=== PATIENT | male | born 1965 | race Caucasian/White ===

== ENCOUNTER → 2023-05-28 10:28 | Outpatient (REF) | payer OTHER, SELFPAY ==
[2023-05-28 11:30] LABS: INR 5.84; PT 52.8 Sec (11.4-14.6)
== END ==
LOC: REG 10:28
PROVIDERS: ATTENDING PHYSICIAN Internal Medicine Cardiovascular Disease
DX: Z95.2 Presence of prosthetic heart valve (principal); Z79.01 Long term (current) use of anticoagulants
CPT/HCPCS: 36415; 85610

== ENCOUNTER → 2023-05-31 10:15 | Outpatient (REF) | payer OTHER, SELFPAY ==
[2023-05-31 11:53] LABS: INR 1.72; PT 20.3 Sec (11.4-14.6)
== END ==
LOC: REG 10:15
PROVIDERS: ATTENDING PHYSICIAN Internal Medicine Cardiovascular Disease
DX: Z79.01 Long term (current) use of anticoagulants (principal); Z95.2 Presence of prosthetic heart valve
CPT/HCPCS: 36415; 85610

== ENCOUNTER → 2023-06-15 16:49 | Outpatient (REF) | payer OTHER, SELFPAY ==
[2023-06-15 17:44] LABS: INR 2.62; PT 27.9 Sec (11.4-14.6)
== END ==
LOC: REG 16:49
PROVIDERS: ATTENDING PHYSICIAN Internal Medicine Cardiovascular Disease; FAMILY PHYSICIAN Internal Medicine
DX: Z79.01 Long term (current) use of anticoagulants (principal); I48.0 Paroxysmal atrial fibrillation
CPT/HCPCS: 36415; 85610

== ENCOUNTER → 2023-06-25 09:28 | Outpatient (REF) | payer OTHER, SELFPAY ==
[2023-06-25 10:44] LABS: INR 2.29; PT 25.1 Sec (11.4-14.6)
== END ==
LOC: REG 09:28
PROVIDERS: ATTENDING PHYSICIAN Internal Medicine Cardiovascular Disease; FAMILY PHYSICIAN Internal Medicine
DX: Z95.2 Presence of prosthetic heart valve (principal); Z79.01 Long term (current) use of anticoagulants
CPT/HCPCS: 36415; 85610

== ENCOUNTER → 2023-07-17 12:02 | Outpatient (REF) | payer OTHER, SELFPAY ==
[2023-07-17 13:02] LABS: INR 3.59; PT 35.8 Sec (11.4-14.6)
== END ==
LOC: REG 12:02
PROVIDERS: ATTENDING PHYSICIAN Internal Medicine Cardiovascular Disease
DX: Z95.2 Presence of prosthetic heart valve (principal); Z79.01 Long term (current) use of anticoagulants
CPT/HCPCS: 36415; 85610

== ENCOUNTER → 2023-08-10 10:00 | Outpatient (REF) | payer OTHER, SELFPAY ==
[2023-08-10 11:12] LABS: INR 3.57; PT 35.7 Sec (11.4-14.6)
== END ==
LOC: REG 10:00
PROVIDERS: ATTENDING PHYSICIAN Internal Medicine Cardiovascular Disease
DX: Z95.2 Presence of prosthetic heart valve (principal); Z79.01 Long term (current) use of anticoagulants
CPT/HCPCS: 36415; 85610

== ENCOUNTER → 2023-09-25 10:36 | Outpatient (REF) | payer OTHER, SELFPAY ==
[2023-09-25 11:46] LABS: INR 2.38; PT 25.8 Sec (11.4-14.6)
== END ==
LOC: REG 10:36
PROVIDERS: ATTENDING PHYSICIAN Internal Medicine Cardiovascular Disease
DX: Z95.2 Presence of prosthetic heart valve (principal); Z79.01 Long term (current) use of anticoagulants
CPT/HCPCS: 36415; 85610

== ENCOUNTER → 2023-10-09 07:40 | Outpatient (REF) | payer OTHER, SELFPAY ==
[2023-10-09 08:38] LABS: INR 1.83
== END ==
LOC: REG 07:40
PROVIDERS: ATTENDING PHYSICIAN Internal Medicine Cardiovascular Disease
DX: Z95.2 Presence of prosthetic heart valve (principal); Z79.01 Long term (current) use of anticoagulants
CPT/HCPCS: 36415; 85610

== ENCOUNTER → 2023-10-22 10:39 | Outpatient (REF) | payer OTHER, SELFPAY ==
[2023-10-22 11:26] LABS: INR 3.69; PT 36.6 Sec (11.4-14.6)
== END ==
LOC: REG 10:39
PROVIDERS: ATTENDING PHYSICIAN Internal Medicine Cardiovascular Disease
DX: Z95.2 Presence of prosthetic heart valve (principal); Z79.01 Long term (current) use of anticoagulants
CPT/HCPCS: 36415; 85610

== ENCOUNTER → 2023-11-12 11:14 | Outpatient (REF) | payer OTHER, SELFPAY ==
[2023-11-12 12:22] LABS: INR 1.78; PT 20.5 Sec (11.4-14.6)
== END ==
LOC: REG 11:14
PROVIDERS: ATTENDING PHYSICIAN Internal Medicine Cardiovascular Disease
DX: Z95.2 Presence of prosthetic heart valve (principal); Z79.01 Long term (current) use of anticoagulants
CPT/HCPCS: 36415; 85610

== ENCOUNTER → 2023-11-23 15:10 | Outpatient (REF) | payer OTHER, SELFPAY ==
[2023-11-23 16:11] LABS: INR 3.13; PT 32.1 Sec (11.4-14.6)
== END ==
LOC: REG 15:10
PROVIDERS: ATTENDING PHYSICIAN Internal Medicine Cardiovascular Disease
DX: Z95.2 Presence of prosthetic heart valve (principal); Z79.01 Long term (current) use of anticoagulants
CPT/HCPCS: 36415; 85610

== ENCOUNTER → 2023-12-31 13:28 | Outpatient (REF) | payer OTHER, SELFPAY ==
[2023-12-31 14:21] LABS: INR 2.87
== END ==
LOC: REG 13:28
PROVIDERS: ATTENDING PHYSICIAN Internal Medicine Cardiovascular Disease
DX: Z95.2 Presence of prosthetic heart valve (principal); Z79.01 Long term (current) use of anticoagulants
CPT/HCPCS: 36415; 85610

== ENCOUNTER → 2024-01-28 14:45 | Outpatient (REF) | payer OTHER, SELFPAY ==
[2024-01-28 16:48] LABS: INR 2.75
== END ==
LOC: REG 14:45
PROVIDERS: ATTENDING PHYSICIAN Internal Medicine Cardiovascular Disease
DX: Z95.2 Presence of prosthetic heart valve (principal); Z79.01 Long term (current) use of anticoagulants
CPT/HCPCS: 36415; 85610

== ENCOUNTER → 2024-03-07 14:23 | Outpatient (REF) | payer OTHER, SELFPAY ==
[2024-03-07 15:27] LABS: INR 3.49; PT 34.8 Sec (11.4-14.6)
== END ==
LOC: REG 14:23
PROVIDERS: ATTENDING PHYSICIAN Internal Medicine Cardiovascular Disease
DX: Z95.2 Presence of prosthetic heart valve (principal); Z79.01 Long term (current) use of anticoagulants
CPT/HCPCS: 36415; 85610

== ENCOUNTER → 2024-04-11 09:33 | Outpatient (REF) | payer OTHER, SELFPAY ==
[2024-04-11 10:26] LABS: INR 2.18; PT 24.4 Sec (11.4-14.6)
== END ==
LOC: REG 09:33
PROVIDERS: ATTENDING PHYSICIAN Internal Medicine Cardiovascular Disease
DX: Z95.2 Presence of prosthetic heart valve (principal); Z79.01 Long term (current) use of anticoagulants
CPT/HCPCS: 36415; 85610

== ENCOUNTER → 2024-05-05 14:30 | Outpatient (REF) | payer OTHER, SELFPAY ==
[2024-05-05 16:26] LABS: INR 1.91
== END ==
LOC: REG 14:30
PROVIDERS: ATTENDING PHYSICIAN Internal Medicine Cardiovascular Disease
DX: Z95.2 Presence of prosthetic heart valve (principal); Z79.01 Long term (current) use of anticoagulants
CPT/HCPCS: 36415; 85610

== ENCOUNTER → 2024-05-20 13:02 | Outpatient (REF) | payer OTHER, SELFPAY ==
[2024-05-20 14:27] LABS: INR 2.22; PT 24.7 Sec (11.4-14.6)
== END ==
LOC: REG 13:02
PROVIDERS: ATTENDING PHYSICIAN Internal Medicine Cardiovascular Disease
DX: Z95.2 Presence of prosthetic heart valve (principal); Z79.01 Long term (current) use of anticoagulants
CPT/HCPCS: 36415; 85610

== ENCOUNTER → 2024-06-06 10:52 | Outpatient (REF) | payer OTHER, SELFPAY ==
[2024-06-06 11:48] LABS: INR 3.69; PT 36.3 Sec (11.4-14.6)
== END ==
LOC: REG 10:52
PROVIDERS: ATTENDING PHYSICIAN Internal Medicine Cardiovascular Disease
DX: Z95.2 Presence of prosthetic heart valve (principal); Z79.01 Long term (current) use of anticoagulants
CPT/HCPCS: 36415; 85610

== ENCOUNTER → 2024-07-15 12:15 | Outpatient (REF) | payer OTHER, SELFPAY ==
[2024-07-15 13:14] LABS: INR 2.55; PT 27.5 Sec (11.4-14.6)
== END ==
LOC: REG 12:15
PROVIDERS: ATTENDING PHYSICIAN Internal Medicine Cardiovascular Disease
DX: Z79.01 Long term (current) use of anticoagulants (principal)
CPT/HCPCS: 36415; 85610

== ENCOUNTER → 2024-08-15 12:37 | Outpatient (REF) | payer OTHER, SELFPAY ==
[2024-08-15 13:54] LABS: INR 2.81; PT 29.5 Sec (11.4-14.6)
== END ==
LOC: REG 12:37
PROVIDERS: ATTENDING PHYSICIAN Internal Medicine Cardiovascular Disease
DX: Z79.01 Long term (current) use of anticoagulants (principal)
CPT/HCPCS: 36415; 85610

== ENCOUNTER → 2024-09-29 12:22 | Outpatient (REF) | payer OTHER, SELFPAY ==
[2024-09-29 13:24] LABS: INR 1.95; PT 22.4 Sec (11.4-14.6)
== END ==
LOC: REG 12:22
PROVIDERS: ATTENDING PHYSICIAN Internal Medicine Cardiovascular Disease
DX: Z79.01 Long term (current) use of anticoagulants (principal)
CPT/HCPCS: 36415; 85610

== ENCOUNTER → 2024-10-02 08:51 | Outpatient (REF) | payer OTHER, SELFPAY ==
[2024-10-02 10:22] LABS: INR 2.45; PT 27.0 Sec (11.4-14.6)
== END ==
LOC: REG 08:51
PROVIDERS: ATTENDING PHYSICIAN Internal Medicine Cardiovascular Disease
DX: Z79.01 Long term (current) use of anticoagulants (principal)
CPT/HCPCS: 36415; 85610

== ENCOUNTER → 2024-10-23 14:26 | Outpatient (REF) | payer OTHER, SELFPAY ==
[2024-10-23 15:18] LABS: INR 2.34; PT 25.7 Sec (11.4-14.6)
== END ==
LOC: REG 14:26
PROVIDERS: ATTENDING PHYSICIAN Internal Medicine Cardiovascular Disease
DX: Z79.01 Long term (current) use of anticoagulants (principal)
CPT/HCPCS: 36415; 85610

== ENCOUNTER 2024-11-06 08:13 | Outpatient (RCR) | payer OTHER, SELFPAY | END 2024-11-06 23:59 | disposition home or self-care (01) | LOC: RPT 08:13 | PROVIDERS: ATTENDING PHYSICIAN Orthopaedic Surgery | DX: S46.011D Strain of muscle(s) and tendon(s) of the rotator cuff of right shoulder, subsequent encounter (principal); Z73.6 Limitation of activities due to disability; M62.81 Muscle weakness (generalized) | CPT/HCPCS: 97112; 97140; 97162 ==

== ENCOUNTER → 2024-11-06 13:01 | Outpatient (REF) | payer OTHER, SELFPAY ==
[2024-11-06 15:25] LABS: INR 3.04; PT 31.8 Sec (11.4-14.6)
== END ==
LOC: REG 13:01
PROVIDERS: ATTENDING PHYSICIAN Internal Medicine Cardiovascular Disease
DX: Z79.01 Long term (current) use of anticoagulants (principal)
CPT/HCPCS: 36415; 85610

== ENCOUNTER 2024-12-09 13:24 | Emergency (ER) | payer OTHER, SELFPAY ==
[2024-12-09 13:27] VITALS: BP 164/106
[2024-12-09 13:52] LABS: Hematocrit 38.8 % (39.0-52.0); Hemoglobin 12.8 g/dL (13.0-18.0); Mean Corp Hgb Conc. 33.0 g/dL (33.0-37.0); Mean Corpuscular Volume 87.4 fL (80.0-94.0); Nucleated Red Blood Cells % 0 % (-); Platelet Count 257 10^3/uL (130-400); Red Cell Dist. Width 14.6 % (11.5-14.5)
[2024-12-09 14:12] LABS: INR 2.93; PT 30.5 Sec (11.4-14.6)
--- NOTE | 2024-12-09 15:19 | ED.GENMED ---
History of Present Illness
General
Chief Complaint: Musculo-Skeletal Complaint
Source: patient
Time Seen by Provider: 12/09/24 14:51
History of Present Illness
History of Present Illness:
59-year-old male with past medical history of seizure, status post aortic valve replacement on Coumadin presenting to the emergency department for evaluation of right forearm swelling and bruising which started yesterday, was recently diagnosed with
a torn rotator cuff about a month ago by orthopedics, concern for compartment syndrome as he had a history of this on his left lower extremity back in 2018. Patient does state while there is pain to the area he denies any color changes,
poikilothermia, paresthesia. He denies any new trauma to this area. He reports compliance with his Coumadin. No other concerns presently.
Past History
Past History
ED Past Medical History: Asthma, Seizures, Valvular disease and Other (Infectious aortic endocarditis)
ED Past Surgical History: Cardiac (Aortic valve replacement)
Social History
Tobacco: Non-smoker
Alcohol: Occasional
Drug: Former user (Heroin overdose)
Personal:
Living: with family
Employment: Not employed
Review of Systems
Review of Systems
All Other Systems: ROS reviewed and negative except as documented in HPI and ROS
Phy Exam
Physical Exam
Physical Exam:
GENERAL: Alert , in no apparent distress
EYE: conjunctiva clear
Head: Normocephalic atraumatic
NECK: Supple,
ENT: mmm.
LUNGS: no acute respiratory distress
NEUROLOGICAL: Alert and oriented
SKIN: Warm and dry, skin intact.
MUSCULOSKELETAL: Right upper extremity: Moderate area of ecchymosis to the proximal to mid right forearm, compartments soft. Patient allows for full range of motion of the right upper extremity, does have some discomfort with range of motion of the
right shoulder which patient states has been since his rotator cuff tear. Easily palpable radial pulse. CR < 2 sec
PSYCH: Normal and appropriate interaction.
Scores
Heart Failure Risk
Heart Failure Risk Score: Not Applicable
Heart Score for Chest Pain Patients
STEMI patient?: Not applicable
Withdrawal Assessment of Alcohol
Withdrawal Assessment Completed?: Not applicable
Course
Orders/Labs/Results
Orders:
Orders
12/09/24 13:38
Venous Doppler Upr Ext Right [US Periph Venous UPPER Ext RT] Urgent
Comment:
Reason For Exam: swelling, Ecchymosis
12/09/24 13:44
Complete Blood Count/With Diff Urgent
INR [Prothrombin Time] Urgent
Abnormal Lab Results
12/09/24
13:44
RBC 4.44 L 10^6/uL
(4.70-6.10)
Hgb 12.8 L g/dL
(13.0-18.0)
Hct 38.8 L %
(39.0-52.0)
RDW 14.6 H %
(11.5-14.5)
MPV 10.7 H fL
(7.4-10.4)
Absolute Monos (auto) 0.9 H 10^3/uL
(0.1-0.6)
Lymphocytes % 17.4 L %
(20.5-51.1)
Monocytes % 10.7 H %
(1.7-9.3)
Eosinophils % 6.9 H %
(0-6)
PT 30.5 H Sec
(11.4-14.6)
12/09/24 13:44
Vital Signs
Initial and Last Documented VS:
Initial Vital Signs
Temp Pulse Resp BP Pulse Ox
98.7 F 88 18 164/106 99
12/09/24 13:27 12/09/24 13:27 12/09/24 13:27 12/09/24 13:27 12/09/24 13:27
Last Documented Vital Signs
Temp Pulse Resp BP Pulse Ox
98.7 F 73 18 122/88 99
12/09/24 13:27 12/09/24 15:43 12/09/24 13:27 12/09/24 15:43 12/09/24 15:22
MDM/Problems Addressed
Differential Diagnosis Includes:
Hematoma
DVT
SVT
Cellulitis
Patient has pain but no other symptoms to suggest compartment syndrome
No trauma for fracture
MDM/Problems Addressed:
59-year-old male presenting to the ER for evaluation of what appears to be a nontraumatic ecchymosis to the right forearm. Given patient is on Coumadin we will check labs to assess hemoglobin as well as his INR. Ultrasound ordered. Reassessment
following. Patient otherwise hemodynamically stable
*Radiology
Radiology exam reviewed: radiology read reviewed
*Pulse Oximetry
SaO2: 99
Oxygen Mode of Delivery: Room air
Patient hypoxic: no
*Critical Care Note
Total Time (30-74mins, 75-104mins- exclusive of procedures): Not Applicable
Patient Management
Escalation/DeEscalation of care consider admission/obs:
Ultrasound is negative for DVT. There does appear to be a hematoma measuring 10 x 4 cm. Advised ice and elevation of the area, Tylenol for pain. Patient did mention to me that he takes NSAIDs for chronic pain. I did mention to him that this
should not be used with his Coumadin as that he has increased potential for bleeding. Patient states that he is on chronic pain medication and has attempted other treatments in the past but these have not worked for him. I again reiterated that
concomitant use of warfarin and NSAIDs is contraindicated. Patient to follow-up with his orthopedic team.
ED Attending Note
-
Portions of this chart may have been created with voice recognition software.� Occasional wrong word or��sound alike� substitutions may have occurred due to the inherent limitations of voice recognition software.
Discharge Plan
Departure
Patient Disposition: Home (Routine Discharge)
Date of Disposition: 12/09/24
Time of Disposition: 15:20
Patient with high blood pressure during this ER visit?: Yes
Discharge Problem:
Hematoma of right forearm
Instructions: Hematoma
Prescriptions:
No Action
warfarin 7.5 mg Tablet
7.5 mg PO DAILY
Rx Instructions:
INR goal = 2.5 - 3.5
magnesium oxide 500 mg Tablet
500 mg PO DAILY
zinc sulfate 220 mg Capsule
220 mg PO DAILY
fluticasone propionate [Flonase] 50 mcg/actuation [place],Suspension
2 spray INTRANASAL DAILY
duloxetine 30 mg Capsule,Delayed Release(Dr/Ec)
30 mg PO QPM
cholecalciferol (vitamin D3) 25 mcg (1,000 unit) Tablet
1,000 unit PO DAILY
ibuprofen 200 mg Tablet
400 mg PO Q6HPRN PRN (Reason: pain)
hydrocodone-acetaminophen 7.5-325 mg tablet
1 tab PO Q8H PRN (Reason: pain) Qty: 10 0RF
Interventions
Interventions:
*Risk Screen - Suicide Last Done: 12/09/24 15:43
*General Assessment Last Done: 12/09/24 15:40
*Neglect/Abuse Screening Last Done: 12/09/24 15:43
*ED- Fall Risk Assessment Last Done: 12/09/24 15:40
*ED COVID-19 Vaccine History Last Done: 12/09/24 15:40
ED-Musculoskeletal Assessment Last Done: 12/09/24 15:41
*Nursing Disposition Last Done: 12/09/24 15:43
Discharge Date and Time
Discharge Date/Time: 12/09/24 15:52
Print Language: KAZAKH
[2024-12-09 15:40] VITALS: BMI 30.5
[2024-12-09 15:43] VITALS: BP 122/88
== END 2024-12-09 15:52 | disposition home or self-care (01) ==
LOC: EMR 13:24
PROVIDERS: Physician Assistant Medical; EMERGENCY PHYSICIAN Emergency Medicine
DX: S50.11XA Contusion of right forearm, initial encounter (principal); X58.XXXA Exposure to other specified factors, initial encounter; J45.909 Unspecified asthma, uncomplicated; G89.29 Other chronic pain; Z79.01 Long term (current) use of anticoagulants; Z95.2 Presence of prosthetic heart valve
CPT/HCPCS: 99284; 85025; 85610; 93971

== ENCOUNTER → 2025-01-09 06:33 | Outpatient (REF) | payer OTHER, SELFPAY ==
[2025-01-09 09:03] LABS: INR 3.74; PT 36.6 Sec (11.4-14.6)
== END ==
LOC: MRI 06:33
PROVIDERS: ATTENDING PHYSICIAN Orthopaedic Surgery; REFERRING PHYSICIAN Internal Medicine Cardiovascular Disease
DX: S46.011A Strain of muscle(s) and tendon(s) of the rotator cuff of right shoulder, initial encounter (principal); Z79.01 Long term (current) use of anticoagulants
CPT/HCPCS: 36415; 73221; 85610

== ENCOUNTER 2025-01-28 12:55 | Emergency (ER) | payer OTHER, SELFPAY ==
[2025-01-28 13:00] VITALS: BP 139/80
[2025-01-28 13:31] LABS: INR 2.71; PT 29.1 Sec (11.4-14.6)
--- NOTE | 2025-01-28 14:14 | ED.GENMED ---
History of Present Illness
<SHANIQUA Aj - Last Filed: 01/28/25 15:47>
General
Chief Complaint: Musculo-Skeletal Complaint
Source: patient
Exam Limitations: none
Time Seen by Provider: 01/28/25 14:09
Nursing documentation reviewed up to this point in time: agreed with
History of Present Illness
History of Present Illness:
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
hook of a railing around his proximal forearm area. Because of this he stopped Coumadin 2 days ago knowing this can make it worse. Since then he complains of pain and swelling to the proximal forearm. He does complain of numbness and tingling to
the tips of his fingers he is right-hand dominant. He does note that he has an old rotator cuff injury to this right arm.
Past History
<SHANIQUA Aj - Last Filed: 01/28/25 15:47>
Past History
ED Past Medical History: Asthma, Seizures, Valvular disease and Other (Infectious aortic endocarditis)
ED Past Surgical History: Cardiac (Aortic valve replacement)
Social History
Tobacco: Non-smoker
Alcohol: Occasional
Drug: Former user (Heroin overdose)
Personal:
Living: with family
Employment: Not employed
Phy Exam
<SHANIQUA Aj - Last Filed: 01/28/25 15:47>
General Physical Exam
General Presentation: no apparent distress
General age: appears stated age
General Skin: warm and dry
General Habitus: normal
General Mental: alert
General Hydration: appears well hydrated
Neurological Exam
Neurological Exam: alert and oriented x3
Musculoskeletal Exam
Musculoskeletal Exam: other (RUE with strong pulses;+ swelling tenderness to proximal forearm , nml distal sensation, able to flex/extend all fingers. )
Skin Exam
Skin Exam: normal color and warm/dry
Psychiatric Exam
Psychiatric Exam: normal mood/affect
Course
<SHANIQUA Aj - Last Filed: 01/28/25 15:47>
Orders/Labs/Results
Orders:
Orders
01/28/25 13:03
Forearm, Right 2 View [CR Forearm - Right 2 View] Urgent
Comment:
Reason For Exam: pain
01/28/25 13:04
Periph Venous Upr Ext Right US [US Periph Venous UPPER Ext RT] Urgent
Comment:
Reason For Exam: pain, swelling
01/28/25 13:10
INR [Prothrombin Time] Urgent
Abnormal Lab Results
01/28/25
13:10
PT 29.1 H Sec
(11.4-14.6)
Vital Signs
Initial and Last Documented VS:
Initial Vital Signs
Temp Pulse Resp BP Pulse Ox
36.8 C 63 18 139/80 97
01/28/25 13:00 01/28/25 13:00 01/28/25 13:00 01/28/25 13:00 01/28/25 13:00
Last Documented Vital Signs
Temp Pulse Resp BP Pulse Ox
36.8 C 63 18 139/80 97
01/28/25 13:00 01/28/25 13:00 01/28/25 13:00 01/28/25 13:00 01/28/25 14:16
Director Of Dance consulted with Physician
Director Of Dance consulted with physician?: Yes
Name of Physician Consulted: Keith
<Morgan Parker MD - Last Filed: 01/28/25 15:53>
Orders/Labs/Results
Orders:
Orders
01/28/25 13:03
Forearm, Right 2 View [CR Forearm - Right 2 View] Urgent
Comment:
Reason For Exam: pain
01/28/25 13:04
Periph Venous Upr Ext Right US [US Periph Venous UPPER Ext RT] Urgent
Comment:
Reason For Exam: pain, swelling
01/28/25 13:10
INR [Prothrombin Time] Urgent
Abnormal Lab Results
01/28/25
13:10
PT 29.1 H Sec
(11.4-14.6)
Vital Signs
Initial and Last Documented VS:
Initial Vital Signs
Temp Pulse Resp BP Pulse Ox
36.8 C 63 18 139/80 97
01/28/25 13:00 01/28/25 13:00 01/28/25 13:00 01/28/25 13:00 01/28/25 13:00
Last Documented Vital Signs
Temp Pulse Resp BP Pulse Ox
36.8 C 63 18 139/80 97
01/28/25 13:00 01/28/25 13:00 01/28/25 13:00 01/28/25 13:00 01/28/25 14:16
<SHANIQUA Aj - Last Filed: 01/28/25 15:47>
MDM/Problems Addressed
Differential Diagnosis Includes:
Not limited to contusion, hematoma, fracture, compartment syndrome.
MDM/Problems Addressed:
As documented patient is a 5-year-old male on Coumadin presents for evaluation of forearm injury. Patient hit his forearm on a railing 2 days ago and has had pain since. He stopped his Coumadin because of this 2 days ago. He does complain of pain
to the proximal forearm with slight numbness and tingling to the fingers. However on exam his compartments soft he does have tenderness and swelling palpable hematoma to the proximal dorsal forearm. He does have intact sensation strong distal
pulses normal cap refill. His INR is 2.71 At this time symptoms are consistent with contusion however with being on Coumadin we did discuss possibility of observation overnight . He would like to go home. Strict return precautions given I did
review compartment syndrome. Will place an niko for support to wear during the day he may remove at night while sleeping. Will d/c w/ pain meds. He may hold Coumadin today and call his fretted instrument inspector tomorrow for further instructions.
Chronic conditions affecting care:
On Coumadin for valve
<SHANIQUA Aj - Last Filed: 01/28/25 15:47>
*Radiology
Radiology exam reviewed: radiology read reviewed
*Pulse Oximetry
SaO2: 97
Oxygen Mode of Delivery: Room air
Patient hypoxic: no
*Critical Care Note
Total Time (30-74mins, 75-104mins- exclusive of procedures): Not Applicable
ED Attending Note
<SHANIQUA Aj - Last Filed: 01/28/25 15:47>
-
Portions of this chart may have been created with voice recognition software.� Occasional wrong word or��sound alike� substitutions may have occurred due to the inherent limitations of voice recognition software.
<Morgan Parker MD - Last Filed: 01/28/25 15:53>
ED Attending Note
Patient seen and examined by attending physician: Yes
ED Attending Note:
I have seen and evaluated the patient with a [id number] encounter. I have spoken to the advance practicer provider and involved in the medical history, the physical exam, medical decision making.
Evaluation and management service: agree unless noted differently below.
Results interpretation: agree unless noted differently below.
Focused HPI: 59-year-old male with history as noted significant for aortic valve replacement on Coumadin who presents to the ER for evaluation of right forearm pain and swelling. Patient's struck his arm 2 days ago on a railing and has had pain in
the right forearm since. He reports swelling. He has some tingling in his fingertips as well. He says that in the past he has developed compartment syndrome and so he came to the ER to be evaluated. He has been holding his Coumadin for the past
2 days.
Physical exam: Awake and alert. Vital signs normal. On exam of his right arm he has palpable hematoma on the dorsum of the proximal right forearm which is tender to touch but the rest of his arm nontender. Compartments are soft. Motor and
sensory objectively radial, median, ulnar nerve distribution he has a bounding right radial pulse.
Medical Decision Makin-year-old male presents for evaluation of right forearm pain. He is on Coumadin. X-ray shows no fracture. Ultrasound shows no DVT but findings consistent with a hematoma. INR today is 2.7, has been holding Coumadin x
48 hours. Overall his exam is not consistent with a compartment syndrome. Able to control his pain here. We did have a long discussion with the patient about risk of progression to compartment syndrome. Spoke to him about being observed in the
hospital for serial checks but he declined he says that he will not stay in the hospital. Will instead place compression wrap on the forearm. Advised him to hold Coumadin this evening and call his fretted instrument inspector in the morning to discuss further.
Spoke in detail about strict return precautions�he says he has had compartment syndrome before and is quite familiar with reasons to return. All questions answered.
Discharge Plan
Departure
Patient Disposition: Home (Routine Discharge)
Date of Disposition: 01/28/25
Time of Disposition: 15:39
Patient with high blood pressure during this ER visit?: Yes
Condition: Fair
Covid-19: Not Applicable
Discharge Problem:
Contusion of forearm, right, Hematoma
Instructions: Contusion (DC), BLOOD PRESSURE, Hematoma
Prescriptions:
New
oxycodone 5 mg tablet
5 mg PO Q6H PRN (Reason: Pain) Qty: 10 0RF
No Action
warfarin 7.5 mg Tablet
7.5 mg PO DAILY
Rx Instructions:
INR goal = 2.5 - 3.5
magnesium oxide 500 mg Tablet
500 mg PO DAILY
zinc sulfate 220 mg Capsule
220 mg PO DAILY
fluticasone propionate [Flonase] 50 mcg/actuation [place],Suspension
2 spray INTRANASAL DAILY
duloxetine 30 mg Capsule,Delayed Release(Dr/Ec)
30 mg PO QPM
cholecalciferol (vitamin D3) 25 mcg (1,000 unit) Tablet
1,000 unit PO DAILY
ibuprofen 200 mg Tablet
400 mg PO Q6HPRN PRN (Reason: pain)
hydrocodone-acetaminophen 7.5-325 mg tablet
1 tab PO Q8H PRN (Reason: pain) Qty: 10 0RF
Referrals:
Rose Obrien MD [Family Provider, Internal Medicine]
Activity Restrictions/Additional Instructions:
As discussed wear Niko wrap for support for gentle compression however remove at night while sleeping. You may take Tylenol for pain if needed a stronger medicine was sent to your pharmacy. This is a narcotic. No driving or drinking alcohol taking
this medication. This medication may also cause constipation please take additional laxative while taking this medication. Do not take your Coumadin this evening however please call your fretted instrument inspector tomorrow for further instructions on restarting
your medication.
Return however to the ER if any worsening of symptoms of increased pain, swelling, increasing numbness , cold numb or blue fingers
Interventions
Interventions:
*Risk Screen - Suicide Last Done: 01/28/25 13:00
*General Assessment Last Done: 01/28/25 13:00
*Neglect/Abuse Screening Last Done: 01/28/25 13:16
*ED- Fall Risk Assessment Last Done: 01/28/25 13:16
*ED COVID-19 Vaccine History Last Done: 01/28/25 13:16
*ED Influenza Vaccine History Last Done: 01/28/25 13:16
ED-Musculoskeletal Assessment Last Done: 01/28/25 13:16
Discharge Date and Time
Print Language: MALTESE
== END 2025-01-28 16:00 | disposition home or self-care (01) ==
LOC: EMR 12:55
PROVIDERS: Emergency Medicine; EMERGENCY PHYSICIAN Emergency Medicine; FAMILY PHYSICIAN Student in an Organized Health Care Education/Training Program
DX: S50.11XA Contusion of right forearm, initial encounter (principal); W22.09XA Striking against other stationary object, initial encounter; R22.31 Localized swelling, mass and lump, right upper limb; J45.909 Unspecified asthma, uncomplicated; Z95.2 Presence of prosthetic heart valve; Z79.01 Long term (current) use of anticoagulants
CPT/HCPCS: 99284; 73090; 85610; 93971

== ENCOUNTER 2025-01-29 16:14 | Inpatient (IN) | payer OTHER, SELFPAY ==
[2025-01-29] VITALS (23 sets, daily range): BP systolic 100–177; BP diastolic 56–136; BMI 31.7
--- NOTE | 2025-01-29 12:07 | ED.GENMED ---
History of Present Illness
<Pretty Lopez PA-C - Last Filed: 02/05/25 00:03>
General
Chief Complaint: Musculo-Skeletal Complaint
Source: patient
Exam Limitations: none
Time Seen by Provider: 01/29/25 12:10
Nursing documentation reviewed up to this point in time: agreed with
History of Present Illness
History of Present Illness:
see MDM
Past History
<Pretty Lopez PA-C - Last Filed: 02/05/25 00:03>
Past History
ED Past Medical History: Asthma, Seizures, Valvular disease and Other (Infectious aortic endocarditis)
ED Past Surgical History: Cardiac (Aortic valve replacement)
Social History
Tobacco: Non-smoker
Alcohol: Occasional
Drug: Former user (Heroin overdose)
Personal:
Living: with family
Employment: Not employed
Phy Exam
<Pretty Lopez PA-C - Last Filed: 02/05/25 00:03>
Physical Exam
Physical Exam:
GENERAL: Alert , in no apparent distress
HEAD: NCAT
NECK: no midline tenderness, active ROM intact, no paraspinal muscle tenderness;
EYE: pupils equal and reactive, EOMs intact.
ENT: o/p clr, mmm. no hemotympanum
CARDIAC: Regular rate and rhythm, no edema
LUNGS: Clear breath sounds bilaterally, no acute respiratory distress, no wheezes/rales/rhonchi
ABDOMEN: Soft, without focal tenderness, no r/g, no cvat
NEUROLOGICAL: Alert and oriented, no focal neuro deficits, CN intact, 5/5 strength, sensation intact
SKIN: Warm and dry, MILD ECCHYMOSIS FOREARM, SOME DUSKY APEPARANCE OF THE HAND
MUSCULOSKELETAL: MODERATE DORSAL FOREARM STS WITH FIRMNESS PROXIUMAL HALF INTO THE ELBOW WITH TENDENRESS
SOME WEAKNESS TO HIS RIGHT WRIST EXTENSION
NORMLA PULSE
DELAYED CAP REFILL
SLIGHTLY COOL TEMP TO HAND
PSYCH: Normal and appropriate interaction.
Course
<Pretty Lopez PA-C - Last Filed: 02/05/25 00:03>
Orders/Labs/Results
Orders:
Orders
01/29/25 12:26
CT Angio Upper Ext W/Wo Iv Contrast [CT Upper Ext Angio W/wo Iv Con] Urgent
Comment:
Reason For Exam: RUE swelling/hematoma
01/29/25 12:28
HYDROmorphone [Dilaudid] 1 mg IV NOW STA
01/29/25 12:42
Basic Metabolic Panel Urgent
Complete Blood Count/With Diff Urgent
PTT Urgent
Prothrombin Time Urgent
01/29/25 Dinner
Regular
At Your Request: Full Participation
01/29/25 15:01
HYDROmorphone [Dilaudid] 1 mg IV NOW STA
01/29/25 15:30
ORTHOPEDIC CONSULT Urgent
Consulting Provider: Maria Fernanda Hidalgo I.
Was physician already notified: Yes
01/29/25 15:37
Admit/Transfer Patient As Directed
Co-Sign Provider:
Level of Care: Inpatient admission
Assign to:: Telemetry
Physician / Group: sergo knight
Diagnosis: Compartment syndrome
Reason for Telemetry: Other
Other Reason for Telemetry: Compartment syndrome
Date to Stop Telemetry: 01/31/25
Time to Stop Telemetry: 11:00
Reason for Hospitalization: Compartment syndrome
Expected length of stay greater than two midnights?: Yes
ELOS- Estimated Length of Stay in days: 2
I certify the patient meets the requirements for IP care: Yes
PRN Pain Medication Management As Directed
May give lesser potent ordered pain med per pt: Yes
preference::
Protocol:: Medication orders for pain may be administered in a
manner that supports deferring to patient preference
when the pt is:
- Requesting an ordered lesser potent pain medication.
Least to most potent pain medications are defined
as: acetaminophen < NSAID < tramadol < opioids
(morphine, oxycodone, hydromorphone).
- Requesting a lesser dose of the same medication IF
ORDERED.
- Requesting a less intrusive route of administration
if both routes are prescribed by the provider (PO <
IV).
01/29/25 15:38
Code Status As Directed
Resuscitation Status: Full Code
01/29/25 15:44
Lidocaine HCl/Pf [Xylocaine-Mpf 1% Vial] 50 mg .ROUTE .STK-MED ONE
Propofol [Diprivan] 20 ml .ROUTE .STK-MED
Rocuronium [place] [Rocuronium] 50 mg .ROUTE .STK-MED ONE
01/29/25 15:46
Midazolam HCl [Versed] 2 mg .ROUTE .STK-MED ONE
01/29/25 15:50
Fentanyl Citrate/Pf [Sublimaze] 100 mcg .ROUTE .STK-MED ONE
Fentanyl Citrate/Pf [Sublimaze] 100 mcg .ROUTE .STK-MED ONE
01/29/25 15:52
Bupivacaine Pf 0.5% [Sensorcaine 0.5% Single Dose] 30 ml .ROUTE .STK-MED ONE
01/29/25 18:17
0.9% Sodium Chloride 1000 ml [Nss] 1,000 ml IV 75 mls/hr
Acetaminophen [Tylenol] 650 mg PO Q4HPRN PRN
Bisacodyl [Dulcolax] 10 mg RECTAL [id number] PRN
Docusate W/Senna [Senokot-S] 1 tablet PO BIDPRN PRN
Duloxetine Delayed Release [Cymbalta Delayed Release] 30 mg PO QPM
Ondansetron Injectable [Zofran] 4 mg IV Q6HPRN PRN
Polyethylene Glycol Powder [Miralax] 17 grams PO DAILYPRN PRN
01/29/25 18:17
CARDIOLOGY CONSULT Routine
Consulting Provider: Feliberto Tran
Was physician already notified: Yes
Reason for consult: History of AVR, on Coumadin, here with compartment syndrome
Activity As Directed
Activity Level: As Tolerated
Notify MD As Directed
Notify physician if: PTT is greater than or equal to 200.
Pneumatic Compression Sleeves As Directed
Type: Knee high
Vital Signs As Directed
Frequency: Per unit guidelines
DX Deep Vein Thrombosis Video Routine
01/29/25 19:06
HYDROmorphone [Dilaudid] 1 mg IV Q4HPRN PRN
01/29/25 19:18
Complete Blood Count/No Diff Urgent
Comment: Obtain baseline before beginning heparin infusion if not already collected
01/30/25 04:34
Basic Metabolic Panel IN AM
Complete Blood Count/No Diff IN AM
PT/INR [Prothrombin Time] IN AM
01/31/25 08:01
Complete Blood Count/No Diff Q2D
Comment: Notify MD if platelet count is <130,000 or decreases by 50% from baseline
PT/INR [Prothrombin Time] IN AM
01/31/25 11:00
DC Protocol for Telemetry ONCE
02/01/25 08:05
PT/INR [Prothrombin Time] IN AM
02/04/25 05:44
Complete Blood Count/No Diff Q2D
Comment: Notify MD if platelet count is <130,000 or decreases by 50% from baseline
02/06/25 06:00
Complete Blood Count/No Diff Q2D
Comment: Notify MD if platelet count is <130,000 or decreases by 50% from baseline
02/08/25 06:00
Complete Blood Count/No Diff Q2D
Comment: Notify MD if platelet count is <130,000 or decreases by 50% from baseline
02/10/25 06:00
Complete Blood Count/No Diff Q2D
Comment: Notify MD if platelet count is <130,000 or decreases by 50% from baseline
02/12/25 06:00
Complete Blood Count/No Diff Q2D
Comment: Notify MD if platelet count is <130,000 or decreases by 50% from baseline
02/14/25 06:00
Complete Blood Count/No Diff Q2D
Comment: Notify MD if platelet count is <130,000 or decreases by 50% from baseline
Abnormal Lab Results
01/29/25
12:42
RBC 4.67 L 10^6/uL
(4.70-6.10)
MCHC 30.9 L g/dL
(33.0-37.0)
RDW 15.3 H %
(11.5-14.5)
MPV 10.9 H fL
(7.4-10.4)
Absolute Neuts (auto) 7.5 H 10^3/uL
(1.4-6.5)
Absolute Monos (auto) 1.2 H 10^3/uL
(0.1-0.6)
Lymphocytes % 11.1 L %
(20.5-51.1)
Monocytes % 11.5 H %
(1.7-9.3)
PT 23.4 H Sec
(11.4-14.6)
APTT 43.3 H Sec
(23.4-35.0)
01/29/25 12:42
01/29/25 12:42
Vital Signs
Initial and Last Documented VS:
Initial Vital Signs
Temp Pulse Resp BP Pulse Ox
36.9 C 78 20 137/81 95
01/29/25 10:47 01/29/25 10:47 01/29/25 10:47 01/29/25 10:47 01/29/25 10:47
Last Documented Vital Signs
Temp Pulse Resp BP Pulse Ox
37.1 C 76 17 126/81 97
02/04/25 23:19 02/04/25 23:19 02/04/25 23:19 02/04/25 23:19 02/04/25 23:19
<Kenny Giron, DO - Last Filed: 01/29/25 13:05>
Orders/Labs/Results
Orders:
Orders
01/29/25 12:26
CT Angio Upper Ext W/Wo Iv Contrast [CT Upper Ext Angio W/wo Iv Con] Urgent
Comment:
Reason For Exam: RUE swelling/hematoma
01/29/25 12:28
HYDROmorphone [Dilaudid] 1 mg IV NOW STA
01/29/25 12:42
Basic Metabolic Panel Urgent
Complete Blood Count/With Diff Urgent
PTT Urgent
Prothrombin Time Urgent
01/29/25 Dinner
Regular
At Your Request: Full Participation
01/29/25 15:01
HYDROmorphone [Dilaudid] 1 mg IV NOW STA
01/29/25 15:30
ORTHOPEDIC CONSULT Urgent
Consulting Provider: Maria Fernanda Hidalgo I.
Was physician already notified: Yes
01/29/25 15:37
Admit/Transfer Patient As Directed
Co-Sign Provider:
Level of Care: Inpatient admission
Assign to:: Telemetry
Physician / Group: sergo knight
Diagnosis: Compartment syndrome
Reason for Telemetry: Other
Other Reason for Telemetry: Compartment syndrome
Date to Stop Telemetry: 01/31/25
Time to Stop Telemetry: 11:00
Reason for Hospitalization: Compartment syndrome
Expected length of stay greater than two midnights?: Yes
ELOS- Estimated Length of Stay in days: 2
I certify the patient meets the requirements for IP care: Yes
PRN Pain Medication Management As Directed
May give lesser potent ordered pain med per pt: Yes
preference::
Protocol:: Medication orders for pain may be administered in a
manner that supports deferring to patient preference
when the pt is:
- Requesting an ordered lesser potent pain medication.
Least to most potent pain medications are defined
as: acetaminophen < NSAID < tramadol < opioids
(morphine, oxycodone, hydromorphone).
- Requesting a lesser dose of the same medication IF
ORDERED.
- Requesting a less intrusive route of administration
if both routes are prescribed by the provider (PO <
IV).
01/29/25 15:38
Code Status As Directed
Resuscitation Status: Full Code
01/29/25 15:44
Lidocaine HCl/Pf [Xylocaine-Mpf 1% Vial] 50 mg .ROUTE .STK-MED ONE
Propofol [Diprivan] 20 ml .ROUTE .STK-MED
Rocuronium [place] [Rocuronium] 50 mg .ROUTE .STK-MED ONE
01/29/25 15:46
Midazolam HCl [Versed] 2 mg .ROUTE .STK-MED ONE
01/29/25 15:50
Fentanyl Citrate/Pf [Sublimaze] 100 mcg .ROUTE .STK-MED ONE
Fentanyl Citrate/Pf [Sublimaze] 100 mcg .ROUTE .STK-MED ONE
01/29/25 15:52
Bupivacaine Pf 0.5% [Sensorcaine 0.5% Single Dose] 30 ml .ROUTE .STK-MED ONE
01/29/25 18:17
0.9% Sodium Chloride 1000 ml [Nss] 1,000 ml IV 75 mls/hr
Acetaminophen [Tylenol] 650 mg PO Q4HPRN PRN
Bisacodyl [Dulcolax] 10 mg RECTAL [id number] PRN
Docusate W/Senna [Senokot-S] 1 tablet PO BIDPRN PRN
Duloxetine Delayed Release [Cymbalta Delayed Release] 30 mg PO QPM
Ondansetron Injectable [Zofran] 4 mg IV Q6HPRN PRN
Polyethylene Glycol Powder [Miralax] 17 grams PO DAILYPRN PRN
01/29/25 18:17
CARDIOLOGY CONSULT Routine
Consulting Provider: Feliberto Tran
Was physician already notified: Yes
Reason for consult: History of AVR, on Coumadin, here with compartment syndrome
Activity As Directed
Activity Level: As Tolerated
Notify MD As Directed
Notify physician if: PTT is greater than or equal to 200.
Pneumatic Compression Sleeves As Directed
Type: Knee high
Vital Signs As Directed
Frequency: Per unit guidelines
DX Deep Vein Thrombosis Video Routine
01/29/25 19:06
HYDROmorphone [Dilaudid] 1 mg IV Q4HPRN PRN
01/29/25 19:18
Complete Blood Count/No Diff Urgent
Comment: Obtain baseline before beginning heparin infusion if not already collected
01/30/25 04:34
Basic Metabolic Panel IN AM
Complete Blood Count/No Diff IN AM
PT/INR [Prothrombin Time] IN AM
01/31/25 08:01
Complete Blood Count/No Diff Q2D
Comment: Notify MD if platelet count is <130,000 or decreases by 50% from baseline
PT/INR [Prothrombin Time] IN AM
01/31/25 11:00
DC Protocol for Telemetry ONCE
02/01/25 08:05
PT/INR [Prothrombin Time] IN AM
02/04/25 05:44
Complete Blood Count/No Diff Q2D
Comment: Notify MD if platelet count is <130,000 or decreases by 50% from baseline
02/06/25 06:00
Complete Blood Count/No Diff Q2D
Comment: Notify MD if platelet count is <130,000 or decreases by 50% from baseline
02/08/25 06:00
Complete Blood Count/No Diff Q2D
Comment: Notify MD if platelet count is <130,000 or decreases by 50% from baseline
02/10/25 06:00
Complete Blood Count/No Diff Q2D
Comment: Notify MD if platelet count is <130,000 or decreases by 50% from baseline
02/12/25 06:00
Complete Blood Count/No Diff Q2D
Comment: Notify MD if platelet count is <130,000 or decreases by 50% from baseline
02/14/25 06:00
Complete Blood Count/No Diff Q2D
Comment: Notify MD if platelet count is <130,000 or decreases by 50% from baseline
Abnormal Lab Results
01/29/25
12:42
RBC 4.67 L 10^6/uL
(4.70-6.10)
MCHC 30.9 L g/dL
(33.0-37.0)
RDW 15.3 H %
(11.5-14.5)
MPV 10.9 H fL
(7.4-10.4)
Absolute Neuts (auto) 7.5 H 10^3/uL
(1.4-6.5)
Absolute Monos (auto) 1.2 H 10^3/uL
(0.1-0.6)
Lymphocytes % 11.1 L %
(20.5-51.1)
Monocytes % 11.5 H %
(1.7-9.3)
PT 23.4 H Sec
(11.4-14.6)
APTT 43.3 H Sec
(23.4-35.0)
01/29/25 12:42
01/29/25 12:42
Vital Signs
Initial and Last Documented VS:
Initial Vital Signs
Temp Pulse Resp BP Pulse Ox
36.9 C 78 20 137/81 95
01/29/25 10:47 01/29/25 10:47 01/29/25 10:47 01/29/25 10:47 01/29/25 10:47
Last Documented Vital Signs
Temp Pulse Resp BP Pulse Ox
37.1 C 76 17 126/81 97
02/04/25 23:19 02/04/25 23:19 02/04/25 23:19 02/04/25 23:19 02/04/25 23:19
<Silvio Marcano PA-C - Last Filed: 01/29/25 15:16>
Orders/Labs/Results
Orders:
Orders
01/29/25 12:26
CT Angio Upper Ext W/Wo Iv Contrast [CT Upper Ext Angio W/wo Iv Con] Urgent
Comment:
Reason For Exam: RUE swelling/hematoma
01/29/25 12:28
HYDROmorphone [Dilaudid] 1 mg IV NOW STA
01/29/25 12:42
Basic Metabolic Panel Urgent
Complete Blood Count/With Diff Urgent
PTT Urgent
Prothrombin Time Urgent
01/29/25 Dinner
Regular
At Your Request: Full Participation
01/29/25 15:01
HYDROmorphone [Dilaudid] 1 mg IV NOW STA
01/29/25 15:30
ORTHOPEDIC CONSULT Urgent
Consulting Provider: Maria Fernanda Hidalgo I.
Was physician already notified: Yes
01/29/25 15:37
Admit/Transfer Patient As Directed
Co-Sign Provider:
Level of Care: Inpatient admission
Assign to:: Telemetry
Physician / Group: sergo knight
Diagnosis: Compartment syndrome
Reason for Telemetry: Other
Other Reason for Telemetry: Compartment syndrome
Date to Stop Telemetry: 01/31/25
Time to Stop Telemetry: 11:00
Reason for Hospitalization: Compartment syndrome
Expected length of stay greater than two midnights?: Yes
ELOS- Estimated Length of Stay in days: 2
I certify the patient meets the requirements for IP care: Yes
PRN Pain Medication Management As Directed
May give lesser potent ordered pain med per pt: Yes
preference::
Protocol:: Medication orders for pain may be administered in a
manner that supports deferring to patient preference
when the pt is:
- Requesting an ordered lesser potent pain medication.
Least to most potent pain medications are defined
as: acetaminophen < NSAID < tramadol < opioids
(morphine, oxycodone, hydromorphone).
- Requesting a lesser dose of the same medication IF
ORDERED.
- Requesting a less intrusive route of administration
if both routes are prescribed by the provider (PO <
IV).
01/29/25 15:38
Code Status As Directed
Resuscitation Status: Full Code
01/29/25 15:44
Lidocaine HCl/Pf [Xylocaine-Mpf 1% Vial] 50 mg .ROUTE .STK-MED ONE
Propofol [Diprivan] 20 ml .ROUTE .STK-MED
Rocuronium [place] [Rocuronium] 50 mg .ROUTE .STK-MED ONE
01/29/25 15:46
Midazolam HCl [Versed] 2 mg .ROUTE .STK-MED ONE
01/29/25 15:50
Fentanyl Citrate/Pf [Sublimaze] 100 mcg .ROUTE .STK-MED ONE
Fentanyl Citrate/Pf [Sublimaze] 100 mcg .ROUTE .STK-MED ONE
01/29/25 15:52
Bupivacaine Pf 0.5% [Sensorcaine 0.5% Single Dose] 30 ml .ROUTE .STK-MED ONE
01/29/25 18:17
0.9% Sodium Chloride 1000 ml [Nss] 1,000 ml IV 75 mls/hr
Acetaminophen [Tylenol] 650 mg PO Q4HPRN PRN
Bisacodyl [Dulcolax] 10 mg RECTAL [id number] PRN
Docusate W/Senna [Senokot-S] 1 tablet PO BIDPRN PRN
Duloxetine Delayed Release [Cymbalta Delayed Release] 30 mg PO QPM
Ondansetron Injectable [Zofran] 4 mg IV Q6HPRN PRN
Polyethylene Glycol Powder [Miralax] 17 grams PO DAILYPRN PRN
01/29/25 18:17
CARDIOLOGY CONSULT Routine
Consulting Provider: Feliberto Tran
Was physician already notified: Yes
Reason for consult: History of AVR, on Coumadin, here with compartment syndrome
Activity As Directed
Activity Level: As Tolerated
Notify MD As Directed
Notify physician if: PTT is greater than or equal to 200.
Pneumatic Compression Sleeves As Directed
Type: Knee high
Vital Signs As Directed
Frequency: Per unit guidelines
DX Deep Vein Thrombosis Video Routine
01/29/25 19:06
HYDROmorphone [Dilaudid] 1 mg IV Q4HPRN PRN
01/29/25 19:18
Complete Blood Count/No Diff Urgent
Comment: Obtain baseline before beginning heparin infusion if not already collected
01/30/25 04:34
Basic Metabolic Panel IN AM
Complete Blood Count/No Diff IN AM
PT/INR [Prothrombin Time] IN AM
01/31/25 08:01
Complete Blood Count/No Diff Q2D
Comment: Notify MD if platelet count is <130,000 or decreases by 50% from baseline
PT/INR [Prothrombin Time] IN AM
01/31/25 11:00
DC Protocol for Telemetry ONCE
02/01/25 08:05
PT/INR [Prothrombin Time] IN AM
02/04/25 05:44
Complete Blood Count/No Diff Q2D
Comment: Notify MD if platelet count is <130,000 or decreases by 50% from baseline
02/06/25 06:00
Complete Blood Count/No Diff Q2D
Comment: Notify MD if platelet count is <130,000 or decreases by 50% from baseline
02/08/25 06:00
Complete Blood Count/No Diff Q2D
Comment: Notify MD if platelet count is <130,000 or decreases by 50% from baseline
02/10/25 06:00
Complete Blood Count/No Diff Q2D
Comment: Notify MD if platelet count is <130,000 or decreases by 50% from baseline
02/12/25 06:00
Complete Blood Count/No Diff Q2D
Comment: Notify MD if platelet count is <130,000 or decreases by 50% from baseline
02/14/25 06:00
Complete Blood Count/No Diff Q2D
Comment: Notify MD if platelet count is <130,000 or decreases by 50% from baseline
Abnormal Lab Results
01/29/25
12:42
RBC 4.67 L 10^6/uL
(4.70-6.10)
MCHC 30.9 L g/dL
(33.0-37.0)
RDW 15.3 H %
(11.5-14.5)
MPV 10.9 H fL
(7.4-10.4)
Absolute Neuts (auto) 7.5 H 10^3/uL
(1.4-6.5)
Absolute Monos (auto) 1.2 H 10^3/uL
(0.1-0.6)
Lymphocytes % 11.1 L %
(20.5-51.1)
Monocytes % 11.5 H %
(1.7-9.3)
PT 23.4 H Sec
(11.4-14.6)
APTT 43.3 H Sec
(23.4-35.0)
01/29/25 12:42
01/29/25 12:42
Vital Signs
Initial and Last Documented VS:
Initial Vital Signs
Temp Pulse Resp BP Pulse Ox
36.9 C 78 20 137/81 95
01/29/25 10:47 01/29/25 10:47 01/29/25 10:47 01/29/25 10:47 01/29/25 10:47
Last Documented Vital Signs
Temp Pulse Resp BP Pulse Ox
37.1 C 76 17 126/81 97
02/04/25 23:19 02/04/25 23:19 02/04/25 23:19 02/04/25 23:19 02/04/25 23:19
<Pretty Lopez PA-C - Last Filed: 02/05/25 00:03>
MDM/Problems Addressed
Differential Diagnosis Includes:
see Mdm
MDM/Problems Addressed:
Note:
CHIEF COMPLAINT(S)
Persistent severe pain and swelling in the left arm.
HISTORY OF PRESENT ILLNESS
The patient is a 59-year-old male with an extensive vascular history, including previous compartment syndrome requiring a fasciotomy. He recently experienced a significant event involving his right arm. A few weeks ago, he noted that his forearm
'blew up like a balloon,' turned purple, and felt rock hard. Concerned about a recurrence of compartment syndrome, he sought medical attention. However, this was not confirmed.
bit then 3 days ago he actually banged his R arm against something and since has had pain/swelling whichi s worsening
pt says that he was seen yesterday with concerns for compartment syndrome
he had US showing 4x2 cm hematoma but had a pulse and no weakness and was offered observation and declined
he returns after swelling/pain/numbness worsening.
The patient has managed increased pain with minimal intake of medication, having taken two doses of oxycodone. The impacted functionality of his arm and hand persists, contributing to considerable discomfort and limitation.
PAST MEDICAL AND SURGICAL HISTORY
- Previous compartment syndrome with fasciotomy.
- Valve replacement surgery.
SOCIAL HISTORY
The patient reported involvement in physically demanding activities, such as house painting, despite ongoing medical concerns.
PHYSICAL EXAM
-
PROBLEM LIST
Acute:
- Severe pain and swelling in left arm with possible hematoma.
Chronic:
- History of compartment syndrome.
- History of valve replacement surgery.
DIFFERENTIAL DIAGNOSIS
The Differential Diagnosis includes, in no particular order and is not limited to:
- Hematoma
- Recurrent Compartment Syndrome
- Deep Vein Thrombosis
- Brachial Plexus Injury
- Acute Vascular Injury
- Cellulitis
- Tendon Injuries
- Rotator Cuff Injury
- Complex Regional Pain Syndrome
- Spontaneous Intramuscular Bleed
59-year-old male with a history of Coumadin use due to valve replacement presents for significant swelling to his right forearm with firmness, reported numbness to his hand and weakness in his hand after an injury 3 days ago. Patient stopped his
Coumadin, he has not slept well. He was seen yesterday and evaluated and thought maybe have an early compartment syndrome and offered observation however he did have a good pulse. Patient did decline that admission. He was given oxycodone, he did
take 2 doses of the oxycodone which is not touching his pain. 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 He has more numbness today than yesterday. On exam he does have significant forearm tense
hematoma or soft tissue swelling to his proximal forearm, very tender, limited wrist extension and some discoloration to the hand however a very bounding pulse.
pt was seen by vascular team (i spoke with dr. story's PAs who took the call and came to bedside) and recommended CTA
I did reach out to Dr. Hidalgo who is on-call for Ortho given the concern for compartment syndrome. She said she would come see him in the emergency department after the CTA was performed. Patient was seen by ED attending.
01/29/2025 1459 PM
Hematoma appears larger on CT today however it is compared to an ultrasound from yesterday
And he is having more concerning neurovascular symptoms
Seen by Dr. Metzger at the bedside. She is concerned he is having a compartment syndrome and we will try to arrange for surgery at this hospital. She is speaking with the hand surgeon on-call
<Pretty Lopez PA-C - Last Filed: 02/05/25 00:03>
*Pulse Oximetry
SaO2: 95
Oxygen Mode of Delivery: Room air
Patient hypoxic: no (97)
*Critical Care Note
Total Time (30-74mins, 75-104mins- exclusive of procedures): Not Applicable
<Silvio Marcano PA-C - Last Filed: 01/29/25 15:16>
Update Note
Update Note:
Assumed care of patient on signout. Patient seen and evaluated by orthopedics who is concern for evolving compartment syndrome of the forearm. On-call orthopedics reach out to their hand specialist who is able to do a fasciotomy here tonight.
Will keep n.p.o. for the OR tonight
ED Attending Note
<Pretty Lopez PA-C - Last Filed: 02/05/25 00:03>
-
Portions of this chart may have been created with voice recognition software.� Occasional wrong word or��sound alike� substitutions may have occurred due to the inherent limitations of voice recognition software.
<Kenny Giron DO - Last Filed: 01/29/25 13:05>
ED Attending Note
Patient seen and examined by attending physician: Yes
I performed the substantive portion of visit, reviewed & personally made and approve the management plan that is documented in note by myself or WILFREDO.: Yes
ED Attending Note:
I have seen and evaluated the patient with a [id number] encounter. I have spoken to the advance practicer provider and involved in the medical history, the physical exam, medical decision making.
Evaluation and management service: agree unless noted differently below.
Results interpretation: agree unless noted differently below.
Focused HPI: 59-year-old male presenting for evaluation of right forearm swelling and pain. Patient had minimal trauma and was seen in the emergency department yesterday. Patient has a prior history of leg swelling that required fasciotomy. Due
to the concern for the developing hematoma, he stopped his blood thinner. Patient complaining of [id number] in his hand and worsening pain
Physical exam: Swelling noted to right forearm mostly along the extensor surface. Radial pulse +2. The compartments are somewhat firm
Medical Decision Making: Given his prior history, case discussed with vascular surgery and orthopedics. Given that he has a bounding radial pulse, this is likely not a vascular surgery case, per vascular. Orthopedics aware and will evaluate
Discharge Plan
Departure
Patient Disposition: OR
Date of Disposition: 01/29/25
Time of Disposition: 15:16
Presentation/result/management discussed w/ accepting /: ellie
Discharge Problem:
Compartment syndrome
Interventions
Interventions:
*Risk Screen - Suicide Last Done: 01/29/25 10:47
*General Assessment Last Done: 01/29/25 10:47
*Neglect/Abuse Screening Last Done: 01/29/25 10:47
*ED- Fall Risk Assessment Last Done: 01/29/25 11:47
*ED Influenza Vaccine History Last Done: 01/29/25 14:00
*Nursing Disposition Last Done: 01/29/25 15:54
ED-Musculoskeletal Assessment Last Done: 01/29/25 11:47
Discharge Date and Time
Discharge Date/Time: 01/29/25 15:54
[2025-01-29] MEDS: DILAUDID 1 MG IV ×2 (12:45→15:04)
[2025-01-29 12:50] LABS: Hematocrit 43.0 % (39.0-52.0); Hemoglobin 13.3 g/dL (13.0-18.0); Mean Corp Hgb Conc. 30.9 g/dL (33.0-37.0); Mean Corpuscular Volume 92.1 fL (80.0-94.0); Nucleated Red Blood Cells % 0 % (-); Platelet Count 235 10^3/uL (130-400); Red Cell Dist. Width 15.3 % (11.5-14.5)
[2025-01-29 12:59] LABS: INR 2.03; PT 23.4 Sec (11.4-14.6)
[2025-01-29 13:00] LABS: APTT 43.3 Sec (23.4-35.0)
[2025-01-29 13:34] LABS: Blood Urea Nitrogen 16 mg/dl (9-20); Calcium 9.8 mg/dl (8.4-10.2); Carbon Dioxide 27 mmol/L (22-30); Chloride 104 mmol/L (98-107); Estimated Creatinine Clearance 110 ml/min; Glucose 96 mg/dl (70-99); Sodium 135 mmol/L (135-145); eGFR > 60.00
--- NOTE | 2025-01-29 15:54 | HPS.HSE ---
Family Physician
-
Family Physician: Morgan Parker MD
Chief Complaint
-
Right arm swelling
History of Present Illness
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 Moustapha AVR for severe AI (#[address] Moustapha) in 2014 on chronic Coumadin), resolved cardiomyopathy,
hypertension, asthma, sleep apnea, chronic diastolic CHF, depression, who came to the ER with right arm swelling, he banged his right arm against something 3 days ago and started to be more swollen and tender. In the ER there was a concern for
compartment syndrome with previous history and being on warfarin.
INR came back at 2.03 and CTA right upper extremity showed:
Intramuscular hematoma is present within the volar radial soft tissues of the proximal forearm (likely within the brachioradialis muscle), measuring approximately 6.7 x 4.4 x 8.8 cm. No evidence for active bleeding.
There is moderate subcutaneous edema along the dorsal aspect of the arm centered at the elbow joint level. No loculated fluid collections.
Evaluation of additional soft tissue structures such as tendons and ligaments is limited by CT. Grossly, no abnormalities are seen.
Partially visualized soft tissues of the chest, abdomen and pelvis are grossly unremarkable.
Patient seen and examined at bedside, at bedside, still complaining of right forearm pain, denies any chest pain or shortness of breath, no abdominal pain, no nausea, no vomiting, no diarrhea or constipation.
Orthopedic consulted in the ER and plan for or intervention today.
Medical History
Past Medical History
Past Medical History: Reports Other (Aortic valve replacement, depression)
Past Surgical History: Reports Cardiac
Social History
Tobacco: Non-smoker
Alcohol: Occasional
Personal:
Living: With Family
Employment: Not Employed
Family History
Family History: Not pertinent
Allergies / Home Medications
Allergies reflects when Allergies were last updated in [facility].
Home Medications with original date entered in [employer]
Allergy/Medication List:
Allergies
Allergy/AdvReac Type Severity Reaction Status Date / Time
codeine Allergy Itching Verified 01/29/25 10:49
Home Medications
duloxetine 30 mg capsule,delayed release 30 mg PO QPM Neuropathy 05/25/22
oxycodone 5 mg tablet 5 mg PO Q6HPRN PRN severe Pain 01/29/25
warfarin 10 mg tablet 10 mg PO QPM Blood Clot Prevention/Tx 01/29/25
Review of Systems
-
A 12 point ROS was completed and negative except as noted: Yes
Constitutional: Denies Fever, Weight Gain, Weight Loss, Fatigue or Sleep Disturbance
EENT: Denies Tearing, Sore Throat, Mouth Pain, Mouth Swelling or Runny Nose
Respiratory: Denies Cough, Hemoptysis or Trouble Breathing
Cardiac: Denies Chest Pain, Diaphoresis, Palpitations or Syncope
Abdomen/GI: Denies Abdominal Pain, Nausea, Vomiting, Diarrhea, Constipated, Bloody Stools or Black Stools
: Denies Dysuria, Frequency, Flank Pain, Incontinence, Difficulty Voiding, Urgency, Bleeding or Dark Urine
Musculoskeletal: Denies Joint Pain, Joint Swelling, Muscle Pain, Muscle Stiffness or Edema
Skin: Denies Itching or Rash
Neurological: Denies Dizzy, Headache, Weakness or Numbness
Endocrine: Denies Polyuria, Polydipsia or Temp Intolerance
Hematologic/Lymphatic: Denies Bleeding, Swollen Glands or Bruising
Psych: Reports Calm; Denies Depression, Anxiety or Panic Disorder
Physical Exam
Vital Signs
Vital Signs
Temp Pulse Resp BP Pulse Ox
98.4 F 68 20 100/82 99
01/29/25 10:47 01/29/25 15:15 01/29/25 15:15 01/29/25 15:06 01/29/25 15:15
Physical Exam
General: Well Developed, Well Nourished, No Apparent Distress, Comfortable and Good Appetite; No Pain, Chills or Sweats
HEENT: NormoCephalic, Moist mucous membranes, Atraumatic, Good Dentition, PERRLA, Nose Appears Normal and Ears Appear Normal
Respiratory: Clear
Cardiac: S1/S2 and Regular Rhythm
Breast: Deferred by me
GI: Soft, Non Tender, Non Distended and Normal Bowel Sounds
Genito-urinary: Deferred by me
Musculoskeletal: Edema, Right Upper Extremity (Right upper extremity swelling, tenderness) and Other
Skin: Warm; No Rash, Jaundice, Ulcers, Lesions or Decubitus Ulcers
Neuro: Awake, Alert, Oriented, AO x 3, No Motor Deficits, Nonfocal/grossly intact and Cranial Nerves Intact
Hematologic/Lymphatic: No Lymphadenopathy
Psych: Calm
Laboratory Results
-
01/29/25 12:42
01/29/25 12:42
Laboratory Results
PT 23.4 Sec (11.4-14.6) H 01/29/25 12:42
INR 2.03 01/29/25 12:42
APTT 43.3 Sec (23.4-35.0) H 01/29/25 12:42
Total Bilirubin Cancelled 01/29/25 12:42
AST Cancelled 01/29/25 12:42
ALT Cancelled 01/29/25 12:42
Alkaline Phosphatase Cancelled 01/29/25 12:42
Data Reviewed
-
Diagnostic Radiology: Report Reviewed by me
CT Scan: Report Reviewed by me
Medical Tests (Nuc Med, Echo, EKG etc): Report Reviewed by me
Lab Data: Labs Reviewed by me
Old Records: Reviewed
Impression/Plan
-
Impression:
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
something 3 days ago and started to be more swollen and tender.
In the ER there was a concern for compartment syndrome with previous history and being on warfarin.
INR came back at 2.03 and CTA right upper extremity showed:
Intramuscular hematoma is present within the volar radial soft tissues of the proximal forearm (likely within the brachioradialis muscle), measuring approximately 6.7 x 4.4 x 8.8 cm. No evidence for active bleeding.
There is moderate subcutaneous edema along the dorsal aspect of the arm centered at the elbow joint level. No loculated fluid collections.
Evaluation of additional soft tissue structures such as tendons and ligaments is limited by CT. Grossly, no abnormalities are seen.
Partially visualized soft tissues of the chest, abdomen and pelvis are grossly unremarkable.
Orthopedic consulted in the ER and plan for or intervention today.
Assessment/plan:
Right upper extremity compartment syndrome
Patient with history of AVR on Coumadin.
Trauma 3 days ago.
History of compartment syndrome in the past.
CTA shows:
Intramuscular hematoma is present within the volar radial soft tissues of the proximal forearm (likely within the brachioradialis muscle), measuring approximately 6.7 x 4.4 x 8.8 cm. No evidence for active bleeding.
There is moderate subcutaneous edema along the dorsal aspect of the arm centered at the elbow joint level. No loculated fluid collections.
Evaluation of additional soft tissue structures such as tendons and ligaments is limited by CT. Grossly, no abnormalities are seen.
Partially visualized soft tissues of the chest, abdomen and pelvis are grossly unremarkable.
Evaluated by orthopedic and the ER and plan for OR today
Pain control.
History of [facility]. Moustapha AVR for severe AI (#[address] Moustapha) in 2014 on chronic Coumadin.
Target INR 2-3 since absent other risk factor including A-fib or history of stroke.
May consider heparin drip after OR if okay with orthopedic.
Cardiology consulted
Daily PT/INR.
History of depression.
Continue duloxetine
CODE STATUS: Full code
DVT prophylaxis: coumdin on hold, SCDs
Diet: NPO for OR, then Regular diet
Family communication: Discussed with family at bedside
Disposition: Admit under hospitalist, OR today.
Total time spent on today's encounter was 75 minutes which included time spent in counseling the patient/family regarding diagnosis and treatment plan as listed above, goals of care, and symptom management. Case was discussed with nursing staff,
specialists, and care coordinators/case management. All labs and imaging personally reviewed by me. Remainder the time spent in detailed review of previous records, lab data, imaging, and other medical provider documentation.
--- NOTE | 2025-01-29 18:11 | W.IMMPOSTOP ---
Surgical Immed Post Op Note
-
Primary Surgeon: Frances
Assisting Surgeon: None
Pre-op Diagnosis: Right forearm compartment syndrome, Right forearm hematoma
Post-op Diagnosis: Same
Procedure Performed: Right forearm hematoma evacuation, Fasciotomy
Anesthesia Type: General
Specimen / Cultures: None
Estimated Blood Loss: 20cc
Complications: None
Operative Findings: Intramuscular hematoma within proximal brachioradialis
Plan:
- Hold off on anticoagulation if possible
- Continue with neurovascular checks
Dictated [id number]
[2025-01-29] MEDS: DILAUDID 0.5 MG IV ×4 (18:30→21:33)
[2025-01-29] MEDS: DUONEB 3 ML INH (18:44)
[2025-01-29 19:24] LABS: Hematocrit 37.2 % (39.0-52.0); Hemoglobin 12.0 g/dL (13.0-18.0); Mean Corp Hgb Conc. 32.3 g/dL (33.0-37.0); Mean Corpuscular Volume 87.7 fL (80.0-94.0); Platelet Count 219 10^3/uL (130-400); Red Cell Dist. Width 15.4 % (11.5-14.5)
[2025-01-29] MEDS: OFIRMEV 100 IV (19:53)
--- NOTE | 2025-01-29 19:57 | W.PN.UPDATE ---
Update Note
Progress Note Update
Patient seen in PACU, significantly uncomfortable and riving in pain. Was present in PACU for another admission when questioned by staff of patients status. His SpO2 mid 80s on NC and nursing reported that patient can not tolerate mask. Added orders
for STAT CXR, O2 midflow or highflow if needed and transfer to ICU per informatica mdm developer Dr. Simmons.
[2025-01-29] MEDS: LASIX 40 MG IV (23:11)
[2025-01-29] MEDS: TYLENOL 650 MG PO (23:12)
[2025-01-29] MEDS: CYMBALTA DELAYED RELEASE 30 MG PO (23:13)
[2025-01-30] VITALS (13 sets, daily range): BP systolic 93–154; BP diastolic 62–103; BMI 30.2
[2025-01-30 00:21] LABS: Blood Urea Nitrogen 15 mg/dl (9-20); Calcium 9.3 mg/dl (8.4-10.2); Carbon Dioxide 24 mmol/L (22-30); Chloride 103 mmol/L (98-107); Estimated Creatinine Clearance 123 ml/min; Glucose 147 mg/dl (70-99); Potassium 4.6 mmol/L (3.5-5.1); Sodium 131 mmol/L (135-145); eGFR > 60.00
[2025-01-30] MEDS: DILAUDID 1 MG IV ×3 (00:32→18:11)
[2025-01-30 04:50] LABS: Hematocrit 37.0 % (39.0-52.0); Hemoglobin 11.7 g/dL (13.0-18.0); Mean Corp Hgb Conc. 31.6 g/dL (33.0-37.0); Mean Corpuscular Volume 91.8 fL (80.0-94.0); Platelet Count 237 10^3/uL (130-400); Red Cell Dist. Width 15.0 % (11.5-14.5)
[2025-01-30 05:11] LABS: Blood Urea Nitrogen 17 mg/dl (9-20); Calcium 9.5 mg/dl (8.4-10.2); Carbon Dioxide 28 mmol/L (22-30); Chloride 104 mmol/L (98-107); Estimated Creatinine Clearance 99 ml/min; Glucose 155 mg/dl (70-99); Potassium 4.7 mmol/L (3.5-5.1); Sodium 137 mmol/L (135-145); eGFR > 60.00
[2025-01-30 05:35] LABS: INR 1.50; PT 18.6 Sec (11.4-14.6)
--- NOTE | 2025-01-30 06:02 | TRANSFER ---
Late note due to pt care:
2229: Pt arrived from PACU. pt was on 2L NC. IV in place, R lower arm wrapped in laurie, CDI. Pt was placed in bed and oriented to room and use of call díaz. Call díaz and belongings within reach. AAAA, library monitor in place. All needs met at this
time.
--- NOTE | 2025-01-30 08:16 | W.PN.UPDATE ---
Update Note
Progress Note Update
59-year-old male on chronic Coumadin for concern for right upper extremity any brachium compartment syndrome. He is status post right antebrachium hematoma evacuation and fasciotomy with Dr. Frances LEGER 01/29/2025.
Splint intact at this timeframe. Exposed fingertips show capillary refill less than 2 seconds. Demonstrates motor function intact to the AIN PIN and ulnar nerve. Slightly decreased sensation but intact about the radial ulnar and median nerve.
Some hypersensitive and withdrawal with attempted palpation of proximal antebrachium underlying the splint no significant palpable tense compartments
Holding anticoagulation of possible, DVT PPx per primary.
Continue neurovascular checks
Orthopedic surgery will continue to follow
Continue with splint relative rest elevation of right upper extremity
--- NOTE | 2025-01-30 08:34 | PTCARENOTE ---
Patient received from caustic cresylate shift superintendent. Patient resting comfortably in the chair. AAO, VSS. No events noted overnight. Continues with complaints of pain in the right arm and back at times. AM Dilaudid not too effective, home pain medication to be
resumed. Right arm surgical site still with original dressing, neuro-vascular checks are good. No testing scheduled at this time. Call díaz in reach.
[2025-01-30] MEDS: ROXICODONE 5 MG PO ×3 (09:26→21:29)
--- NOTE | 2025-01-30 10:33 | CON.CAR ---
Addendum entered and electronically signed by Tejas Motley MD 01/30/25 12:03:
I saw and examined the patient.
The Load Dispatcher's note was reviewed and I agree with the note.
Comment: Briefly, 59-year-old man past medical history of [place] Moustapha mechanical AVR (2014) on warfarin, heart failure with recovered ejection fraction and prior episode of compartment syndrome presents with right upper extremity swelling and was
diagnosed with compartment syndrome of the right forearm. Cardiology is consulted anticoagulation.
Warfarin is on hold post-op
Most recent INR 1.50
Would not recommend bridging anticoagulation at this time
Will need to discuss with the surgery team re: timing to safely resume anticoagulation
Ultimately may benefit from a lower INR goal of 2.0�3.0
Rest per Sophie Navarro
Original Note:
Consultation
Consultation Request
Date/Time Consultation Requested: 01/29/2025, 1817
Date/Time Consultation Performed: 01/30/2025, 1034
Requesting Provider: Dr. Anne
Performing Provider: SHANIQUA Baca for Dr. Motley
Reason for Consultation: Compartment syndrome, on Coumadin for history of Saint Moustapha mechanical AVR
Medical History
-
Chief Complaint: Right upper extremity compartment syndrome
History of Present Illness:
59-year-old male with past medical history SBE from tooth abscess in 2019, [place] Moustapha mech AVR in 2014 ([facility]) on chronic Coumadin, resolved cardiomyopathy, hypertension, sleep apnea, chronic diastolic heart failure, asthma, seizure disorder,
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 Waters).
He presents to [facility] 01/29/2025 with right arm swelling after hitting right forearm on hook of railing earlier in the week. He self-stopped Coumadin after hitting arm. He's had progressive pain and swelling to the proximal forearm and presented to
the ED 01/29/2025 and found to have compartment syndrome. He was evaluated by orthopedics and taken to OR for urgent fasciotomy/right forearm hematoma evacuation with Dr. Daniels.
Cardiology consulted regarding anticoagulation management.
INRs:
01/28= 2.71, 01/29=2.03, 01/30=1.5
Past medical history:
[facility] Moustapha mechanical AVR 2015 at [facility]
On chronic Coumadin, goal 2.5-3.5
Resolved cardiomyopathy, EF 40% at time of AVR
endocarditis in 2006
Hypertension
Sleep apnea
Chronic diastolic heart
Asthma
Seizure disorder
Left thigh compartment syndrome status post fasciotomy 12/2017
Lyme's disease with neuropathy
Left hip dislocation
Past Medical History
Past Medical History: Other (As above in HPI)
Past Surgical History: Other (AVR in 2014, left medial thigh compartment hematoma with fasciotomy 12/2017, left shoulder surgery 05/2021)
Social History
Tobacco: Non-Smoker
Alcohol: None
Family History
Family History: Other (Father with history of CAD)
Allergies / Home Medications
Allergy/AdvReac Type Severity Reaction Status Date / Time
codeine Allergy Itching Verified 01/29/25 10:49
�Medication �Instructions �Recorded �Confirmed �Type
duloxetine 30 mg capsule,delayed 30 mg PO QPM Neuropathy 05/25/22 01/29/25 History
release
oxycodone 5 mg tablet 5 mg PO Q6HPRN PRN severe Pain 01/29/25 01/29/25 History
warfarin 10 mg tablet 10 mg PO QPM Blood Clot 01/29/25 01/29/25 History
Prevention/Tx
Review of Systems
-
History Source: Patient
Constitutional: No Symptoms
Physical Exam
Vital Signs
Temp Pulse Resp BP Pulse Ox
98.0 F 74 18 124/103 95
01/30/25 06:42 01/30/25 09:00 01/30/25 09:00 01/30/25 05:41 01/30/25 10:03
Lab Results
01/30/25 04:34
01/30/25 04:34
GEN: No distress, awake, Ox3
HEENT: supple, anicteric, mmm
LUNGS: CTA, no wheezes/rales
CV: Reg, S1/S2, no murmur, valvular click
ABD: soft, BS+, NT/ND
EXT: No LE edema. R FA in splint wrapped with HERRERA
NEURO: Gross non-focal
SKIN: No rash
Impression / Plan
-
PCP: Raheem Jimenez
Primary classics teacher: Dr. Lilly
Impression:
Right forearm compartment syndrome status post fasciotomy and hematoma evacuation 01/29/2025
History of mechanical aortic valve replacement
Chronic Coumadin
Hypertension
Hyperlipidemia
Chronic diastolic heart failure
Endocarditis 2006
Sleep apnea
Traumatic hematoma left thigh with compartment syndrome status post fasciotomy 12/2017
Previous cardiovascular testing:
Echo 07/04/2021: EF 50-55%, possible basal inferior, basal septal akinesis, status post mechanical AVR with mean gradient 8 mmHg, aortic root mildly dilated 3.8 cm
Echo 08/2017: EF 55-60%, mild LVH, AVR with mean gradient 10 mm
Plan: 59-year-old male presents with RUE compartment syndrome s/p fasciotomy/ R hematoma evacuation, h/o s/p [facility] Moustapha mech AVR in 2014 ([facility]) on chronic Coumadin, resolved cardiomyopathy, hypertension, sleep apnea, chronic diastolic heart
failure, previous left thigh compartment syndrome status post fasciotomy 12/2017 (Dr. Waters).
Cardiology consulted regarding anticoagulation management.
INRs:
01/28= 2.71, 01/29=2.03, 01/30=1.5
-Resume anticoagulation when safe from surgical standpoint
-Goal INR is 2.5-3.5 once back on Coumadin
-Follow daily PT/INR
-Telemetry personally reviewed: Normal sinus rhythm 73-85 bpm
-Blood pressure is well-controlled, he has not required antihypertensive therapy in outpatient setting
Data Reviewed
-
EKG: Tracing Personally Visualized and interpreted
Medical Tests (Nuc Med, Echo etc): Image Personally Visualized and interpreted
Labs: Labs Reviewed by me
Old Records: Reviewed
--- NOTE | 2025-01-30 16:10 | W.PN.HOSP.TC ---
Addendum entered and electronically signed by Leeanne Morse MD 01/30/25 18:33:
I saw and evaluated the patient independently. I reviewed and discussed the resident�s note and agree with findings and plan as documented by Dr. Herrera.
GENERAL: well developed, well nourished, male in no apparent distress
HEENT: NC/AT
HEART: regular rate and rhythm, +S1, +S2, JACQUELINE with click
LUNGS : clear to auscultation bilaterally
ABDOM: soft, nontender, nondistended, + bowel sounds
EXT: no cyanosis, clubbing--right arm post op wrapped
Right upper extremity compartment syndrome secondary to trauma- Patient punctured right forearm on a hook while painting his friends house 3 days ago-Intramuscular hematoma confirmed within the volar radial soft tissues of the proximal forearm on
CTA of the right forearm--apprec ortho --s/p fasciotomy--apprec ortho and cards--pain control and neurovascular checks
History of [facility]. Moustapha AVR in 2014 secondary to bacterial endocarditis- Target INR 2.5-3.5 since absent other risk factor including A-fib or history of stroke--on 01/30/25 his INR is 1.5 decreased from 2.0 yesterday--apprec cardiology about bridging
with heparin, however they will not bridge until discussion with surgery about safe timing to resume anticoagulation- Daily PT/INR.
Reactive leucocytosis secondary to pain from fasciotomy- WBC is 18.6 from 15 yesterday with no fever chills. Suspect secondary to pain from fasciotomy. Continue to trend
Normocytic anemia- Hgb is 11.7 with MCV of 91.8- No signs of an acute bleed, most likely due to blood loss from recent fasciotomy.
History of depression- Continue home dose duloxetine
DVT proph-- SCD's
Code status--Full code
transfer to tele
Original Note:
Today's Communication/Plan
-
- f/u with cardiology about anticoagulation, make sure pain is well controlled
Assessment / Plan
Assessment / Plan
Right upper extremity compartment syndrome secondary to trauma:
- Patient punctured right forearm on a hook while painting his friends house 3 days ago.
- History of compartment syndrome in the past in his left anterior thigh in 2018
- Intramuscular hematoma confirmed within the volar radial soft tissues of the proximal forearm on CTA of the right forearm
- Had fasciotomy performed on 01/29/2025, today is post op day 1, will follow up with ortho about plan moving forward
- Continue neurovascular checks
- For pain Dilaudid will be 1 mg Q3h PRn and we will start oxycodone 5 mg q6hprn which he does not take regularly
- Post fasciotomy, no elevated creatinine, normal urine output and CK is 809 which is normal in someone who had fasciotomy for compartment syndrome. Continue to observe.
Reactive leucocytosis secondary to pain from fasciotomy:
- WBC is 18.6 from 15 yesterday with no fever chills. Suspect secondary to pain from fasciotomy. Continue to trend
Normocytic anemia:
- Hgb is 11.7 with MCV of 91.8
- No signs of an acute bleed, most likely due to blood loss from recent fasciotomy.
History of St. Moustapha AVR in 2014 secondary to bacterial endocarditis:
- Target INR 2.5-3.5 since absent other risk factor including A-fib or history of stroke.
- today on 01/30/25 his INR is 1.5 decreased from 2.0 yesterday. Consulted cardiology about bridging with heparin, however they will not bridge until discussion with surgery about safe timing to resume anticoagulation.
- Daily PT/INR.
History of depression.
- Continue home dose duloxetine
DVT ppx SCD's
Full code
Anticipated Discharge: 24 - 48 hours
Subjective/Interval History
-
Date of Service: January 30, 2025
Patient is s/p day 1 of a right forearm fasciotomy.
On review of systems he notes severe pain in his right forearm that is unrelieved with Dilaudid. No vomiting, chills, fever, abdominal pain, diarrhea, altered mental status, vomiting, numbness, tingling, loss of sensation.
Objective Data
-
Labs:
Laboratory Results
01/30/25
04:34
WBC 18.6 H
Hgb 11.7 L
Hct 37.0 L
Plt Count 237
PT 18.6 H
INR 1.50
Sodium 137
Potassium 4.7
Chloride 104
Carbon Dioxide 28
BUN 17
Creatinine 1.0
Glucose 155 H
Calcium 9.5
Vital Signs:
Vital Signs
Temp Pulse Resp BP Pulse Ox
98.0 F 73 15 105/87 96
01/30/25 06:42 01/30/25 16:01 01/30/25 16:01 01/30/25 16:01 01/30/25 16:01
I&O
01/29/25 01/30/25 01/31/25
06:59 06:59 06:59
Intake Total 500 / 500
Output Total 2049
Balance -1550 / -1550
Review of Systems
-
History Source: Patient
All other systems: Reviewed and negative
Physical Exam
-
General: Well Developed
Respiratory: Clear to Auscultation
Cardiac: Regular Rhythm, S1/S2 and Murmur (There is a 2/6 systolic murmur at both the left and right upper sternal border)
GI: Soft, Nontender, Nondistended and Normal Bowel Sounds
Musculoskeletal: No Clubbing, No Cyanosis and Other (his right forearm is wrapped in a cast s/p fasciotomy yesterday. )
Skin: Warm and Dry
Neuro: AO x 3
Psych: Calm
Data Reviewed
-
Diagnostic Radiology: Report Reviewed by me and Discussed with Physician
CT Scan: Report Reviewed by me and Discussed with Physician
Labs: Labs Reviewed by me and Discussed with Physician
--- NOTE | 2025-01-30 17:44 | CM ---
Patient seen at bedside with physicians earlier today. Patient states that he lives with his parents in a 2 story home. Patient has no DME prior to admission that he uses. Patient does not have confidence in his current PCP and is interested in
Residency clinic. Patient uses [facility]. Patient plan is home with family supports. CM will continue to follow for discharge planning needs.
Plan; home with VN pending medical treatment plan
[2025-01-30] MEDS: CYMBALTA DELAYED RELEASE 30 MG PO (18:11)
[2025-01-30] MEDS: BENADRYL 25 MG PO (20:46)
[2025-01-31] MEDS: DILAUDID 1 MG IV ×3 (02:59→18:03)
[2025-01-31 03:26] VITALS: BP 136/75
[2025-01-31] MEDS: BENADRYL 25 MG PO ×2 (06:13→22:21)
[2025-01-31 07:00] VITALS: BP 133/75
[2025-01-31 08:14] LABS: Hematocrit 36.1 % (39.0-52.0); Hemoglobin 11.3 g/dL (13.0-18.0); Mean Corp Hgb Conc. 31.3 g/dL (33.0-37.0); Mean Corpuscular Volume 88.5 fL (80.0-94.0); Platelet Count 240 10^3/uL (130-400); Red Cell Dist. Width 15.1 % (11.5-14.5)
[2025-01-31 08:27] LABS: INR 1.25; PT 16.0 Sec (11.4-14.6)
[2025-01-31 08:44] LABS: ALT (SGPT) 29 U/L (0-50); AST (SGOT) 44 U/L (17-59); Albumin 4.1 g/dl (3.5-5.0); Alkaline Phosphatase 55 U/L (38-126); Blood Urea Nitrogen 23 mg/dl (9-20); Calcium 9.6 mg/dl (8.4-10.2); Carbon Dioxide 31 mmol/L (22-30); Chloride 102 mmol/L (98-107); Estimated Creatinine Clearance 106 ml/min; Glucose 92 mg/dl (70-99); Potassium 4.2 mmol/L (3.5-5.1); Sodium 139 mmol/L (135-145); Total Protein 6.9 g/dl (6.3-8.2); eGFR > 60.00
--- NOTE | 2025-01-31 10:24 | W.PN.UPDATE ---
Update Note
Progress Note Update
59-year-old male on chronic Coumadin status post right antebrachium hematoma evacuation and fasciotomy with Dr. Frances LEGER 01/29/2025. He does reports some soreness and tingling at baseline, but these are steadily improving.
Post op dressing intact at this timeframe. This was removed to reveal incisions of volar and dorsal forearm to be loosely closed with prolene suture. Incisions well approximated. Some active oozing of volar incision noted. Capillary refill less
than 2 seconds. Demonstrates motor function intact to the AIN PIN and ulnar nerve. Slightly decreased sensation but intact about the radial ulnar and median nerve. Compartments are soft, yet diffusely tender to palpation. Able to actively flex
and extend the wrist with minimal discomfort. Able to make 80% of fist without pain. Fingers remain swollen. New dressing placed and lightly wrapped with laurie wrap.
With mild drainage present, recommend holding coumadin for additional day if medically stable.
Continue neurovascular checks
Orthopedic surgery will continue to follow
Continue with splint relative rest elevation of right upper extremity and pain medication as needed.
[2025-01-31] MEDS: FLUSH (NSS) 2 FLUSH IV ×2 (10:41→18:04)
[2025-01-31] MEDS: SENOKOT-S 1 TABLET PO (10:52)
[2025-01-31 11:00] VITALS: BP 128/74
--- NOTE | 2025-01-31 12:00 | W.PN.CARDCBS ---
Addendum entered and electronically signed by Feliberto Tran DO 01/31/25 15:57:
I saw and examined the patient.
The Export Administrator's note was reviewed and I agree with the note.
Comment:
Plan:
Continue postoperative care status post right forearm compartment syndrome status post fasciotomy and hematoma evacuation January 29, 2025
In discussions with primary and surgery, surgery okays starting IV heparin without bolus this evening
If continues to improve with no bleeding, consider Coumadin tomorrow if okay with surgery.
His AVR is 10 years old which would relay a slightly lower risk of thrombosis however the patient also apparently had stopped Coumadin prior to coming to the hospital.
Heart rate and blood pressure are stable.
Compensated cardiovascular status
Discussed with primary service.
Original Note:
Today's Communication / Plan
-
Start Heparin gtt without bolus tonight
If no bleeding then start warfarin tomorrow night
Impression / Plan
-
PCP: Raheem Jimenez
Primary science editor: Dr. Lilly
Impression:
Right forearm compartment syndrome status post fasciotomy and hematoma evacuation 01/29/2025
s/p [facility] Moustapha AVR at [facility] for severe AI 11/04/14
Chronic Coumadin managed by cardiology
h/o heroin use 05/2017
h/o SBE 2008 from tooth abscess
Hypertension
Hyperlipidemia
Chronic HF improved EF
Improved CM EF 40% by echo 2014, improved to 50% by echo 2021
Sleep apnea
h/o traumatic hematoma left thigh with compartment syndrome status post fasciotomy 12/2017
Echo 07/04/2021: EF 50-55%, possible basal inferior, basal septal akinesis, status post mechanical AVR with mean gradient 8 mmHg, aortic root mildly dilated 3.8 cm
Echo 08/2017: EF 55-60%, mild LVH, AVR with mean gradient 10 mm
Plan:
-Patient admitted with RUE compartment syndrome and had fasciotomy 01/29/25. Cardiology consulted for h/o [facility]. Moustapha AVR and chronic warfarin OAC.
-Ortho note from 01/31/25 reviewed by me and patient with mild drainage and new dressings placed including lightly wrapped HERRERA wrap.
-Patient has a previous [facility] Moustapha mechanical AVR from [facility] in 2014 and is chronically on warfarin. He had a previous LLE hematoma and fasciotomy at [facility] years ago and was bridged with Heparin at that time, but he had a drain in place. No drain
in place currently.
-Patient stopped taking warfarin on his own at home the day he hit his arm, 01/26/25. INR was 2.11 on admission 01/29/25 and patient was NOT given any reversal medications. INR is now 1.25 on my review of labs 01/31/25.
-Conferred with hospitalist attending 01/31/25 and agree with plan to start Heparin gtt 01/31/25 PM without bolus and monitor for bleeding.
-Would like to restart warfarin 10 mg daily on 02/01/25 if no bleeding on Heparin gtt.
-There is no known h/o thromboembolic event.
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
Subjective
Date of Service: January 31, 2025
Pain is well controlled on Dilaudid
Objective
Labs:
01/31/25 08:01
01/31/25 08:01
Labs
Hgb 11.3 g/dL (13.0-18.0) L 01/31/25 08:01
Hct 36.1 % (39.0-52.0) L 01/31/25 08:01
Plt Count 240 10^3/uL (130-400) 01/31/25 08:01
PT 16.0 Sec (11.4-14.6) H 01/31/25 08:01
INR 1.25 01/31/25 08:01
APTT 43.3 Sec (23.4-35.0) H 01/29/25 12:42
Sodium 139 mmol/L (135-145) 01/31/25 08:01
Potassium 4.2 mmol/L (3.5-5.1) 01/31/25 08:01
BUN 23 mg/dl (9-20) H 01/31/25 08:01
Creatinine 0.9 mg/dL (0.7-1.3) 01/31/25 08:01
Glucose 92 mg/dl (70-99) 01/31/25 08:01
Vital Signs and I&O:
Vital Signs
Temp Pulse Resp BP Pulse Ox
97.5 F 66 18 133/75 97
01/31/25 07:00 01/31/25 07:00 01/31/25 07:00 01/31/25 07:00 01/31/25 07:00
Vital Signs
Temp Pulse Resp BP Pulse Ox
97.5 F 66 18 133/75 97
01/31/25 07:00 01/31/25 07:00 01/31/25 07:00 01/31/25 07:00 01/31/25 07:00
Intake & Output
01/29/25 01/30/25 01/31/25 02/01/25
06:59 06:59 06:59 06:59
Intake Total 500 / 500 360 / 360
Output Total 2049 / 2049 600 / 600
Balance -1550 / -1550 -240 / -240
Physical Exam
Physical Exam
GEN: NAD. AAOx3
LUNGS: RA. No wheeze
CV: SR on tele.
EXT: No edema B/L LE. RUE forearm wrapped
NEURO: Gross non-focal
SKIN: No rash
--- NOTE | 2025-01-31 15:01 | W.PN.HOSP.TC ---
Addendum entered and electronically signed by Leeanne Morse MD 01/31/25 15:18:
I saw and evaluated the patient independently. I reviewed and discussed the resident�s note and agree with findings and plan as documented by Dr. Herrera.
GENERAL: well developed, well nourished, male in no apparent distress
HEENT: NC/AT
HEART: regular rate and rhythm, +S1, +S2, JACQUELINE with click
LUNGS : clear to auscultation bilaterally
ABDOM: soft, nontender, nondistended, + bowel sounds--restlessly moving legs in the bed
EXT: no cyanosis, clubbing--right arm post op wrapped
Right upper extremity compartment syndrome secondary to trauma- Patient punctured right forearm on a hook while painting his friends house 3 days ago--Intramuscular hematoma confirmed within the volar radial soft tissues of the proximal forearm on
CTA of the right forearm--apprec ortho --s/p fasciotomy--apprec ortho and cards--pain control and neurovascular checks
History of [facility] Moustapha AVR in 2014 secondary to bacterial endocarditis- Target INR 2.5-3.5 since absent other risk factor including A-fib or history of stroke--on 01/31/25 his INR is 1.25 decreased from 1.5 yesterday, from 2.0--- Daily PT/INR--spoke
with cards AND ortho, plan is to start IV heparin drip at 8 PM tonight NO BOLUS
Reactive leucocytosis secondary to pain from fasciotomy- WBC is 18.6 from 15 yesterday with no fever chills. Suspect secondary to pain from fasciotomy. Continue to trend
Normocytic anemia- Hgb is 11.3-- No signs of an acute bleed, most likely due to blood loss from recent fasciotomy.
History of depression- Continue home dose duloxetine
DVT proph-- SCD's
Code status--Full code
Original Note:
Today's Communication/Plan
-
- patient will be transitioned to heparin drip today at 8 pm, continue to trend INR
Assessment / Plan
Assessment / Plan
Right upper extremity compartment syndrome secondary to trauma:
- Patient punctured right forearm on a hook while painting his friends house 3 days ago.
- History of compartment syndrome in the past in his left anterior thigh in 2018
- Intramuscular hematoma confirmed within the volar radial soft tissues of the proximal forearm on CTA of the right forearm
- Had fasciotomy performed on 01/29/2025, today is post op day 1, will follow up with ortho about plan moving forward
- Continue neurovascular checks
- For pain Dilaudid will be 1 mg Q3h PRn and we will start oxycodone 5 mg q6hprn which he does not take regularly
- Post fasciotomy, no elevated creatinine, normal urine output and CK is 809 which is normal in someone who had fasciotomy for compartment syndrome. Continue to observe.
- Orthopedics will follow up with him to assess fasciotomy wound
Reactive leucocytosis secondary to pain from fasciotomy:
- resolved
Normocytic anemia:
- Hgb is 11.3 with MCV of 91.8
- No signs of an acute bleed, most likely due to blood loss from recent fasciotomy.
History of [facility] Moustapha AVR in 2014 secondary to bacterial endocarditis:
- Target INR 2.5-3.5 since absent other risk factor including A-fib or history of stroke.
- today on 01/30/25 his INR is 1.25 decreased from 1.5 yesterday. Orthopedics ok with starting a heparin drip today at 8 pm.
- Daily PT/INR.
History of depression.
- Continue home dose duloxetine
DVT ppx SCD's until transitioned to Heparin
Full code
Anticipated Discharge: 24 - 48 hours
Subjective/Interval History
-
Date of Service: January 31, 2025
Patient is s/p day 2 of a right forearm fasciotomy.
On review of systems he notes pain in his right forearm ( reduced a amelia from previous after we started oxycodone and make Dilaudid qh3prn). No vomiting, chills, fever, abdominal pain, diarrhea, altered mental status, vomiting, numbness, tingling,
loss of sensation.
Objective Data
-
Labs:
Laboratory Results
01/31/25 01/31/25
08:01 20:00
WBC 10.1
Hgb 11.3 L
Hct 36.1 L
Plt Count 240
PT 16.0 H
INR 1.25
APTT Pending
Sodium 139
Potassium 4.2
Chloride 102
Carbon Dioxide 31 H
BUN 23 H
Creatinine 0.9
Glucose 92
Calcium 9.6
Total Bilirubin 0.9
AST 44
ALT 29
Alkaline Phosphatase 55
Vital Signs:
Vital Signs
Temp Pulse Resp BP Pulse Ox
97.9 F 62 18 128/74 96
01/31/25 11:00 01/31/25 11:00 01/31/25 11:00 01/31/25 11:00 01/31/25 11:00
I&O
01/30/25 01/31/25 02/01/25
06:59 06:59 06:59
Intake Total 500 / 500 360 / 360
Output Total 2049 / 2049 600 / 600
Balance -1550 / -1550 -240 / -240
Review of Systems
-
History Source: Patient
All other systems: Reviewed and negative
Physical Exam
-
General: Well Developed
Respiratory: Clear to Auscultation
Cardiac: Regular Rhythm, S1/S2 and Murmur (There is a 2/6 systolic murmur at both the left and right upper sternal border)
GI: Soft, Nontender, Nondistended and Normal Bowel Sounds
Musculoskeletal: No Clubbing, No Cyanosis and Other (his right forearm is wrapped in a cast s/p fasciotomy yesterday. )
Skin: Warm and Dry
Neuro: AO x 3
Psych: Calm
Data Reviewed
-
Labs: Labs Reviewed by me and Discussed with Physician
[2025-01-31 15:05] VITALS: BP 131/66
[2025-01-31] MEDS: ROXICODONE 5 MG PO ×2 (15:15→22:21)
[2025-01-31] MEDS: CYMBALTA DELAYED RELEASE 30 MG PO (17:59)
[2025-01-31 19:00] VITALS: BP 119/70
[2025-01-31] MEDS: HEPARIN 25000 UNITS/250 ML IV (19:55)
[2025-01-31 20:48] LABS: APTT 23.9 Sec (23.4-35.0)
[2025-01-31 23:14] VITALS: BP 120/79
[2025-02-01] MEDS: DILAUDID 1 MG IV ×4 (02:22→23:05)
[2025-02-01 03:28] LABS: APTT 30.0 Sec (23.4-35.0)
[2025-02-01 03:37] VITALS: BP 136/68
[2025-02-01] MEDS: ROXICODONE 5 MG PO ×3 (04:54→19:46)
[2025-02-01] MEDS: BENADRYL 25 MG PO ×2 (05:02→23:05)
[2025-02-01] MEDS: SENOKOT-S 1 TABLET PO (07:51)
[2025-02-01] MEDS: FLUSH (NSS) 2 FLUSH IV ×2 (07:53→16:29)
[2025-02-01 07:54] VITALS: BP 134/74
--- NOTE | 2025-02-01 08:05 | PTCARENOTE ---
Assessment of pt's right upper arm s/p repair noted previous bleeding mixed with fresh sanguinous blood on 06/27 and guaze dressings near upper part of pt's anterior arm. Pts/ Arm elevated on pillow yesterday and throughout the night, Edema also
noted to pt's upper arm in addition. It appears myah intact under dressing. Will cont to monitor.
[2025-02-01 08:22] LABS: Hematocrit 37.7 % (39.0-52.0); Hemoglobin 11.8 g/dL (13.0-18.0); Mean Corp Hgb Conc. 31.3 g/dL (33.0-37.0); Mean Corpuscular Volume 88.9 fL (80.0-94.0); Nucleated Red Blood Cells % 0 % (-); Platelet Count 240 10^3/uL (130-400); Red Cell Dist. Width 15.2 % (11.5-14.5)
[2025-02-01 08:40] LABS: INR 1.06; PT 14.1 Sec (11.4-14.6)
[2025-02-01 08:41] LABS: APTT 32.4 Sec (23.4-35.0)
[2025-02-01 09:11] LABS: ALT (SGPT) 29 U/L (0-50); AST (SGOT) 38 U/L (17-59); Albumin 4.0 g/dl (3.5-5.0); Alkaline Phosphatase 63 U/L (38-126); Blood Urea Nitrogen 21 mg/dl (9-20); Calcium 9.6 mg/dl (8.4-10.2); Carbon Dioxide 28 mmol/L (22-30); Chloride 104 mmol/L (98-107); Estimated Creatinine Clearance 106 ml/min; Glucose 82 mg/dl (70-99); Magnesium 2.4 mg/dl (1.6-2.3); Potassium 4.4 mmol/L (3.5-5.1); Sodium 136 mmol/L (135-145); Total Protein 7.0 g/dl (6.3-8.2); eGFR > 60.00
--- NOTE | 2025-02-01 11:29 | W.PN.CARDCBS ---
Today's Communication / Plan
-
Tolerating IV heparin, resume Coumadin if okay with surgery/primary service.
Impression / Plan
-
PCP: Raheem Jimenez
Primary operations and maintenance specialist: Dr. Lilly
Impression:
Right forearm compartment syndrome status post fasciotomy and hematoma evacuation 01/29/2025
s/p [facility] Moustapha AVR at [facility] for severe AI 11/04/14
Chronic Coumadin managed by cardiology
h/o heroin use 05/2017
h/o SBE 2008 from tooth abscess
Hypertension
Hyperlipidemia
Chronic HF improved EF
Improved CM EF 40% by echo 2014, improved to 50% by echo 2021
Sleep apnea
h/o traumatic hematoma left thigh with compartment syndrome status post fasciotomy 12/2017
Echo 07/04/2021: EF 50-55%, possible basal inferior, basal septal akinesis, status post mechanical AVR with mean gradient 8 mmHg, aortic root mildly dilated 3.8 cm
Echo 08/2017: EF 55-60%, mild LVH, AVR with mean gradient 10 mm
Plan:
-Patient admitted with RUE compartment syndrome and had fasciotomy 01/29/25. Cardiology consulted for h/o [facility] Moustapha AVR and chronic warfarin OAC.
Continue postoperative care status post right forearm compartment syndrome status post fasciotomy and hematoma evacuation January 29, 2025
Tolerating IV heparin and would transition to oral anticoagulation with Coumadin 10 mg daily if okay with surgery/primary service and no further procedures are planned.
His AVR is 10 years old which would relay a slightly lower risk of thrombosis than a newer valve, however the patient also apparently had stopped Coumadin prior to coming to the hospital.
There is no known h/o thromboembolic event.
Heart rate and blood pressure remain stable.
Compensated cardiovascular status
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
Subjective
Date of Service: February 01, 2025
Pt seen and examined. No complaints. No chest pain or shortness of breath.
Objective
Labs:
11/09/25 08:05
02/01/25 08:05
Labs
Hgb 11.8 g/dL (13.0-18.0) L 02/01/25 08:05
Hct 37.7 % (39.0-52.0) L 02/01/25 08:05
Plt Count 240 10^3/uL (130-400) 02/01/25 08:05
PT 14.1 Sec (11.4-14.6) 02/01/25 08:05
INR 1.06 02/01/25 08:05
APTT 32.4 Sec (23.4-35.0) 02/01/25 08:05
APTT Cancelled 02/01/25 08:05
Sodium 136 mmol/L (135-145) 02/01/25 08:05
Potassium 4.4 mmol/L (3.5-5.1) 02/01/25 08:05
BUN 21 mg/dl (9-20) H 02/01/25 08:05
Creatinine 0.9 mg/dL (0.7-1.3) 02/01/25 08:05
Glucose 82 mg/dl (70-99) 02/01/25 08:05
Vital Signs and I&O:
Vital Signs
Temp Pulse Resp BP Pulse Ox
98.0 F 72 18 134/74 96
02/01/25 07:54 02/01/25 07:54 02/01/25 07:54 02/01/25 07:54 02/01/25 07:54
Vital Signs
Temp Pulse Resp BP Pulse Ox
98.0 F 72 18 134/74 96
02/01/25 07:54 02/01/25 07:54 02/01/25 07:54 02/01/25 07:54 02/01/25 07:54
Intake & Output
01/30/25 01/31/25 02/01/25 02/02/25
06:59 06:59 06:59 06:59
Intake Total 500 / 500 360 / 360 1899
Output Total 2049 600 / 600
Balance -1550 / -1550 -240 / -240 1899
Physical Exam
Physical Exam
General: No acute distress, AAOX3
Neck: Negative JVD
Heart: Regular, Negative S3 positive S1/S2, Negative S4, No murmur
Lungs: CTA b/l, negative wheezes/rales/rhonchi
Abd: Positive BS, NT/ND, neg rebound/rigidity/guarding
Ext: Negative cyanosis/clubbing/edema
Neuro: nonfocal
--- NOTE | 2025-02-01 11:54 | W.PN.UPDATE ---
Update Note
Progress Note Update
60-year-old male on chronic Coumadin status post right antebrachium hematoma evacuation and fasciotomy with Dr. Frances LEGER 01/29/2025. He does reports some soreness and tingling fo the radial forarm/thumb and tips of his fingers at baseline, but these
are steadily improving. Denies any worsening of symptoms. IV heparin drip resumed yesterday. He denies any changes in swelling or pain levels since intiation of this.
Post op dressing intact at this timeframe. This was removed to reveal incisions of volar and dorsal forearm to be loosely closed with prolene suture. Incisions well approximated. Less oozing of volar incision noted. Capillary refill less than 2
seconds. Demonstrates motor function intact to the AIN PIN and ulnar nerve. Slightly decreased sensation but intact about the radial ulnar and median nerve. Compartments are soft and compressible with tenderness only along the medial
antebrachium. Able to actively flex and extend the wrist with minimal discomfort. Able to make 80% of fist without pain. Fingers remain swollen. New dressing placed and lightly wrapped with laurie wrap.
May resume blood thinner from ortho standpoint.
Continue neurovascular checks.
Maintain dressing. May shower, but the dressing needs to stay completely dry.
Relative rest and elevation of right upper extremity. Pain medication as needed.
[2025-02-01 12:27] VITALS: BP 148/73
--- NOTE | 2025-02-01 14:24 | W.PN.HOSP.TC ---
Addendum entered and electronically signed by Leeanne Morse MD 02/01/25 15:52:
I saw and evaluated the patient independently. I reviewed and discussed the resident�s note and agree with findings and plan as documented by Dr. Herrera.
GENERAL: well developed, well nourished, male in no apparent distress
HEENT: NC/AT
HEART: regular rate and rhythm, +S1, +S2, JACQUELINE with click
LUNGS : clear to auscultation bilaterally
ABDOM: soft, nontender, nondistended, + bowel sounds
EXT: no cyanosis, clubbing--right arm post op wrapped
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
CTA of the right forearm--apprec ortho --s/p fasciotomy 01/29/25--apprec ortho and cards--pain control and neurovascular checks
History of [facility] Moustapha AVR in 2014 secondary to bacterial endocarditis- Target INR 2.5-3.5 since absent other risk factor including A-fib or history of stroke--on 01/31/25 his INR is 1.0--- Daily PT/INR--spoke with cards AND ortho, cont IV heparin drip
with bridging to coumadin
Reactive leucocytosis secondary to pain from fasciotomy- WBC now normal
Normocytic anemia- Hgb is 11.3-- from initial bleed and blood loss from recent fasciotomy--ortho gave OK to restart coumadin
History of depression- Continue home dose duloxetine
DVT proph-- SCD's
Code status--Full code
Original Note:
Today's Communication/Plan
-
- F/u with cardiology
Assessment / Plan
Assessment / Plan
Right upper extremity compartment syndrome secondary to trauma:
- Patient punctured right forearm on a hook while painting his friends house 3 days ago.
- History of compartment syndrome in the past in his left anterior thigh in 2018
- Intramuscular hematoma confirmed within the volar radial soft tissues of the proximal forearm on CTA of the right forearm
- Had fasciotomy performed on 01/29/2025, today is post op day 3, will follow up with ortho about plan moving forward
- Continue neurovascular checks
- For pain Dilaudid will be 1 mg Q3h PRn and we will start oxycodone 5 mg q6hprn which he does not take regularly
- Post fasciotomy, no elevated creatinine, normal urine output and CK is 809 which is normal in someone who had fasciotomy for compartment syndrome. Continue to observe.
- Orthopedics will follow up with him to assess fasciotomy wound
Reactive leucocytosis secondary to pain from fasciotomy:
- resolved
Normocytic anemia:
- Hgb is 11.8 with MCV of 91.8
- No signs of an acute bleed, most likely due to blood loss from recent fasciotomy.
History of [facility] Moustapha AVR in 2014 secondary to bacterial endocarditis:
- Target INR 2.5-3.5 since absent other risk factor including A-fib or history of stroke.
- today on 02/01/25 his INR is 1.06 decreased from 1.5 yesterday. on heparin drip today. No acute overnight bleeding symptoms. orthopedics ok with switching him to oral anticoagulant. Will discuss with cardiology about transitioning him back to
warfarin.
- Daily PT/INR.
History of depression.
- Continue home dose duloxetine
DVT ppx SCD's until transitioned to Heparin
Full code
Anticipated Discharge: Within 24 hours
Subjective/Interval History
-
Date of Service: February 01, 2025
Patient is s/p day 3 of a right forearm fasciotomy.
On review of systems he notes pain in his right forearm ( reduced a amelia from previous after we started oxycodone and make Dilaudid qh3prn). No vomiting, chills, fever, abdominal pain, diarrhea, altered mental status, vomiting, numbness, tingling,
loss of sensation.
Objective Data
-
Labs:
Laboratory Results
02/01/25 02/01/25 02/01/25
03:03 08:05 08:05
WBC 9.4
Hgb 11.8 L
Hct 37.7 L
Plt Count 240
PT 14.1
INR 1.06
APTT 30.0 32.4 Cancelled
Sodium 136
Potassium 4.4
Chloride 104
Carbon Dioxide 28
BUN 21 H
Creatinine 0.9
Glucose 82
Calcium 9.6
Total Bilirubin 0.9
AST 38
ALT 29
Alkaline Phosphatase 63
02/01/25
15:30
WBC
Hgb
Hct
Plt Count
PT
INR
APTT Pending
Sodium
Potassium
Chloride
Carbon Dioxide
BUN
Creatinine
Glucose
Calcium
Total Bilirubin
AST
ALT
Alkaline Phosphatase
Vital Signs:
Vital Signs
Temp Pulse Resp BP Pulse Ox
98.4 F 75 18 148/73 98
02/01/25 12:27 02/01/25 12:27 02/01/25 12:27 02/01/25 12:27 02/01/25 12:27
I&O
01/31/25 02/01/25 02/02/25
06:59 06:59 06:59
Intake Total 360 / 360 1900 / 1900
Output Total 600 / 600
Balance -240 / -240 1900 / 1900
Review of Systems
-
History Source: Patient
All other systems: Reviewed and negative
Physical Exam
-
General: Well Developed
Respiratory: Clear to Auscultation
Cardiac: Regular Rhythm, S1/S2 and Murmur (There is a 2/6 systolic murmur at both the left and right upper sternal border)
GI: Soft, Nontender, Nondistended and Normal Bowel Sounds
Musculoskeletal: No Clubbing, No Cyanosis and Other (his right forearm is wrapped in a cast s/p fasciotomy yesterday. )
Skin: Warm and Dry
Neuro: AO x 3
Psych: Calm
Data Reviewed
-
Labs: Labs Reviewed by me and Discussed with Physician
[2025-02-01 15:44] VITALS: BP 128/84
[2025-02-01 15:46] LABS: APTT 41.6 Sec (23.4-35.0)
[2025-02-01] MEDS: CYMBALTA DELAYED RELEASE 30 MG PO (16:29)
[2025-02-01] MEDS: HEPARIN 25000 UNITS/250 ML IV (17:41)
[2025-02-01] MEDS: COUMADIN 10 MG PO (18:32)
[2025-02-01 19:31] VITALS: BP 131/75
[2025-02-01 23:14] VITALS: BP 166/87
[2025-02-01 23:19] LABS: APTT 49.4 Sec (23.4-35.0)
[2025-02-02 03:09] VITALS: BP 114/76
--- NOTE | 2025-02-02 05:09 | W.PN.UPDATE ---
Update Note
Progress Note Update
Patient on chronic Coumadin s/p right antebrachium hematoma evacuation and fasciotomy Feb 17 (Frances). Endorses soreness and tingling fo the radial forearm/thumb and tips of his fingers at baseline, but these are improving. Denies worsening of
symptoms. Heparin to Coumadin bridge per Cards/primary. Labs pending. He denies any changes in swelling or pain levels since yesterday's initiation of this.
Post op dressing intact at this time. Changed yesterday. This was removed to reveal incisions of volar and dorsal forearm to be loosely closed with prolene suture. Incisions were well approximated. Capillary refill less than 2 seconds this AM.
Demonstrates motor function intact to the AI, PIN, and ulnar nerve. Slightly decreased sensation but intact about the radial ulnar and median nerve. Compartments are soft and compressible with tenderness only along the medial antebrachium. Able
to actively flex and extend the wrist with minimal discomfort. 80% fist composition without pain. Fingers remain swollen. New dressing in place and lightly wrapped with laurie wrap.
Continue heparin/coumadin bridge from ortho standpoint- appreciate Cards/primary
Continue neurovascular checks
Maintain dressing. May shower, but the dressing needs to stay completely dry.
Relative rest and elevation of right upper extremity. Pain medication as needed.
Encouraged digit ROM
F/u wound check in 1 week with Ortho
[2025-02-02 07:00] VITALS: BP 160/84
[2025-02-02 07:04] LABS: INR 1.10; PT 14.6 Sec (11.4-14.6)
[2025-02-02 07:06] LABS: APTT 79.2 Sec (23.4-35.0)
[2025-02-02 07:18] LABS: ALT (SGPT) 25 U/L (0-50); AST (SGOT) 28 U/L (17-59); Albumin 3.9 g/dl (3.5-5.0); Alkaline Phosphatase 66 U/L (38-126); Blood Urea Nitrogen 17 mg/dl (9-20); Calcium 9.5 mg/dl (8.4-10.2); Carbon Dioxide 27 mmol/L (22-30); Chloride 106 mmol/L (98-107); Estimated Creatinine Clearance 106 ml/min; Glucose 94 mg/dl (70-99); Magnesium 2.4 mg/dl (1.6-2.3); Potassium 4.2 mmol/L (3.5-5.1); Sodium 136 mmol/L (135-145); Total Protein 6.7 g/dl (6.3-8.2); eGFR > 60.00
[2025-02-02] MEDS: SENOKOT-S 1 TABLET PO (07:49)
[2025-02-02] MEDS: ROXICODONE 5 MG PO ×3 (07:49→21:52)
--- NOTE | 2025-02-02 07:54 | W.PN.UPDATE ---
Update Note
Progress Note Update
I saw and evaluated the patient. I reviewed the resident�s note and agree with findings and plan as documented in the resident�s note.
No new complaints.
Gen: NAD, AAOx3.
Eyes: EOMI, PERRLA, no scleral icterus.
Neck: supple.
CV: RRR, +S1/S2, no m/r/g.
Resp: CTAB, no rales, wheezes, or rhonchi.
Abd: +BS, soft, NT, ND
Skin: No rashes. RUE with C/D/I dressing
Neuro: CN 2-12 intact, non-focal. No motor or sensory deficits in RUE
Psych: Normal mood and affect.
CXR 01/29:
1. Mild interstitial cardiogenic pulmonary edema.
2. Mild cardiomegaly.
3. Previous aortic valve replacement.
4. Mildly to moderately decreased lung volumes.
CTA RUE 01/29: Intramuscular hematoma within the proximal right forearm as described. No CTA evidence for active bleeding.
RUE compartment syndrome:
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
-Intramuscular hematoma confirmed within the volar radial soft tissues of the proximal forearm on CTA of the right forearm
-s/p fasciotomy 01/29/25
-ortho following
-pain control and neurovascular checks
h/o [facility] Moustapha AVR in 2014 due to bacterial endocarditis:
-Target INR 2.5-3.5
-cont heparin/coumadin bridge
Other problems:
Obesity due to excess calories: encourage wt loss, affects all aspects of care
Reactive leucocytosis, resolved
Normocytic anemia, with acute blood loss anemia due to intramuscular hematoma, trend Hb
Depression: cont duloxetine
FULL/Heparin
[2025-02-02 08:43] LABS: Hematocrit 36.7 % (39.0-52.0); Hemoglobin 11.1 g/dL (13.0-18.0); Mean Corp Hgb Conc. 30.2 g/dL (33.0-37.0); Mean Corpuscular Volume 91.8 fL (80.0-94.0); Nucleated Red Blood Cells % 0 % (-); Platelet Count 262 10^3/uL (130-400); Red Cell Dist. Width 15.0 % (11.5-14.5)
[2025-02-02] MEDS: HEPARIN 25000 UNITS/250 ML IV ×2 (09:34→22:01)
[2025-02-02] MEDS: MIRALAX 17 GRAMS PO (09:35)
[2025-02-02 11:00] VITALS: BP 134/76
--- NOTE | 2025-02-02 12:21 | W.PN.HOSP.TC ---
Today's Communication/Plan
-
- monitor INR, f/u with ortho and cardio
Assessment / Plan
Assessment / Plan
Right upper extremity compartment syndrome secondary to trauma:
- Patient punctured right forearm on a hook while painting his friends house 3 days ago.
- History of compartment syndrome in the past in his left anterior thigh in 2018
- Intramuscular hematoma confirmed within the volar radial soft tissues of the proximal forearm on CTA of the right forearm
- Had fasciotomy performed on 01/29/2025, today is post op day 5, will follow up with ortho about plan moving forward
- Continue neurovascular checks
- For pain Dilaudid will be 1 mg Q3h PRn and we will start oxycodone 5 mg q6hprn which he does not take regularly
- Post fasciotomy, no elevated creatinine, normal urine output and CK is 809 which is normal in someone who had fasciotomy for compartment syndrome. Continue to observe.
- Orthopedics will follow up with him to assess fasciotomy wound
Reactive leucocytosis secondary to pain from fasciotomy:
- resolved
Normocytic anemia:
- Hgb is 11.8 with MCV of 91.8
- No signs of an acute bleed, most likely due to blood loss from recent fasciotomy.
History of [facility] AVR in 2015 secondary to bacterial endocarditis:
- Target INR 2.5-3.5 since absent other risk factor including A-fib or history of stroke.
- today on 02/01/25 his INR is 1.10 increased from 1.06 yesterday. . No acute overnight bleeding symptoms. On heparin to Coumadin bridge. Will wait for a INR level from 2-3 before contemplating discharge. f/u with ortho and cardio.
- Daily PT/INR.
History of depression.
- Continue home dose duloxetine
DVT ppx SCD's until transitioned to Heparin
Full code
Anticipated Discharge: 24 - 48 hours
Subjective/Interval History
-
Date of Service: February 02, 2025
Patient is s/p day 4 of a right forearm fasciotomy.
On review of systems he notes pain in his right forearm ( reduced a amelia from previous after we started oxycodone and make Dilaudid qh3prn). No vomiting, chills, fever, abdominal pain, diarrhea, altered mental status, vomiting, numbness, tingling,
loss of sensation.
Objective Data
-
Labs:
Laboratory Results
02/02/25 02/02/25 02/02/25
06:43 08:17 13:00
WBC 8.3
Hgb 11.1 L
Hct 36.7 L
Plt Count 262
PT 14.6
INR 1.10
APTT 79.2 H Pending
Sodium 136
Potassium 4.2
Chloride 106
Carbon Dioxide 27
BUN 17
Creatinine 0.9
Glucose 94
Calcium 9.5
Total Bilirubin 1.1
AST 28
ALT 25
Alkaline Phosphatase 66
Vital Signs:
Vital Signs
Temp Pulse Resp BP Pulse Ox
98.2 F 73 20 134/76 97
02/02/25 11:00 02/02/25 11:00 02/02/25 11:00 02/02/25 11:00 02/02/25 11:00
I&O
02/01/25 02/02/25 02/03/25
06:59 06:59 06:59
Intake Total 190 / 0 980 / 980
Balance 190 / 190 980 / 980
Review of Systems
-
History Source: Patient
All other systems: Reviewed and negative
Physical Exam
-
General: Well Developed
Respiratory: Clear to Auscultation
Cardiac: Regular Rhythm, S1/S2 and Murmur (There is a 2/6 systolic murmur at both the left and right upper sternal border)
GI: Soft, Nontender, Nondistended and Normal Bowel Sounds
Musculoskeletal: No Clubbing, No Cyanosis and Other (his right forearm is wrapped in a cast s/p fasciotomy yesterday. )
Skin: Warm and Dry
Neuro: AO x 3
Psych: Calm
Data Reviewed
-
Labs: Labs Reviewed by me and Discussed with Physician
[2025-02-02 13:21] LABS: APTT 68.8 Sec (23.4-35.0)
--- NOTE | 2025-02-02 13:56 | W.PN.CARDCBS ---
Addendum entered and electronically signed by David Lilly MD 02/02/25 14:10:
I saw and examined the patient.
The STOCK ASSOCIATE or PA's note was reviewed and I agree with the note.
Comment: General: Well developed, well nourished in NAD.
Neck: Supple, no JVD, HJR, carotids +2 B/L, no bruits bilaterally.
Heart: Non displaced PMI, RRR, metallic S2, No S3, S4, no rubs.
Lungs: Clear to auscultation bilaterally, no wheeze, rhonchi, rubs bilaterally,
normal expiratory phase.
Extremities: No clubbing, cyanosis or edema bilaterally.
Neuro: Grossly nonfocal, awake, alert and oriented x3.
Continue IV heparin to Coumadin. He really wants to go home but INR has not shown any significant improvement. 10 mg Coumadin tonight.
Original Note:
Today's Communication / Plan
-
Heparin gtt being used as a bridge until INR is therapeutic, INR is 1.1 today and expected will take days to become therapeutic
Impression / Plan
-
PCP: Raheem Jimenez
Primary engineering technology instructor: Dr. Lilly
Impression:
Right forearm compartment syndrome status post fasciotomy and hematoma evacuation 01/29/2025
s/p [facility] AVR at [facility] for severe AI 11/04/14
Chronic Coumadin managed by cardiology
h/o heroin use 05/2017
h/o SBE 2009 from tooth abscess
Hypertension
Hyperlipidemia
Chronic HF improved EF
Improved CM EF 40% by echo 2014, improved to 50% by echo 2021
Sleep apnea
h/o traumatic hematoma left thigh with compartment syndrome status post fasciotomy 12/2017
Echo 08/2017: EF 55-60%, mild LVH, AVR with mean gradient 10 mm
Echo 07/04/2021: EF 50-55%, possible basal inferior, basal septal akinesis, status post mechanical AVR with mean gradient 8 mmHg, aortic root mildly dilated 3.8 cm
Plan:
-Patient admitted with RUE compartment syndrome and had fasciotomy 01/29/25. Cardiology consulted for h/o [facility] M[facility]ha AVR and chronic warfarin OAC.
-Patient tolerated heparin gtt starting 01/31/2025 PM and was allowed to resume warfarin per Ortho starting 02/01/2025.
-Patient was given warfarin 10 mg 02/01/2025 and INR is 1.1 on my review of labs 02/02/2025.
-Heparin gtt running as a bridge, patient has also successfully bridged with Lovenox as an outpatient. Additionally, his AVR is 10 years old which would relay a slightly lower risk of thrombosis than a newer valve and there is no known h/o
thromboembolic event.
-Expect INR will take days to increase as patient stopped taking warfarin on his own at home the day he hit his arm, 01/26/25. INR was 2.11 on admission 01/29/25 and patient was NOT given any reversal medications.
-INRs are managed by cardiology as an outpatient, patient goes to the [facility] outpatient lab, he is known for being noncompliant with obtaining INRs, INR goal is 2.5-3.5
Progress Note - Research Project Coordinator
Subjective
Date of Service: February 02, 2025
Pain meds are helping with his right arm pain
Objective
Labs:
02/02/25 08:17
02/02/25 06:43
Labs
Hgb 11.1 g/dL (13.0-18.0) L 02/02/25 08:17
Hct 36.7 % (39.0-52.0) L 02/02/25 08:17
Plt Count 262 10^3/uL (130-400) 02/02/25 08:17
PT 14.6 Sec (11.4-14.6) 02/02/25 06:43
INR 1.10 02/02/25 06:43
APTT 68.8 Sec (23.4-35.0) H 02/02/25 13:01
Sodium 136 mmol/L (135-145) 02/02/25 06:43
Potassium 4.2 mmol/L (3.5-5.1) 02/02/25 06:43
BUN 17 mg/dl (9-20) 02/02/25 06:43
Creatinine 0.9 mg/dL (0.7-1.3) 02/02/25 06:43
Glucose 94 mg/dl (70-99) 02/02/25 06:43
Vital Signs and I&O:
Vital Signs
Temp Pulse Resp BP Pulse Ox
98.2 F 73 20 134/76 97
02/02/25 11:00 02/02/25 11:00 02/02/25 11:00 02/02/25 11:00 02/02/25 11:00
Vital Signs
Temp Pulse Resp BP Pulse Ox
98.2 F 73 20 134/76 97
02/02/25 11:00 02/02/25 11:00 02/02/25 11:00 02/02/25 11:00 02/02/25 11:00
Intake & Output
01/31/25 02/01/25 02/02/25 02/03/25
06:59 06:59 06:59 06:59
Intake Total 360 / 360 1899 980 / 980
Output Total 600 / 600
Balance -240 / -240 1899 980 / 980
Physical Exam
Physical Exam
GEN: NAD. AAOx3
LUNGS: RA. No wheeze
CV: SR on tele.
EXT: No edema B/L LE. RUE forearm wrapped
[2025-02-02 15:00] VITALS: BP 126/94
[2025-02-02] MEDS: CYMBALTA DELAYED RELEASE 30 MG PO (17:18)
[2025-02-02] MEDS: COUMADIN 10 MG PO (17:18)
[2025-02-02] MEDS: DILAUDID 1 MG IV (19:20)
[2025-02-02 19:59] LABS: APTT 67.1 Sec (23.4-35.0)
[2025-02-02] MEDS: BENADRYL 25 MG PO (21:53)
[2025-02-02 23:00] VITALS: BP 134/83
[2025-02-03 03:33] LABS: INR 1.33; PT 16.8 Sec (11.4-14.6)
[2025-02-03 03:35] LABS: APTT 135.2 Sec (23.4-35.0)
[2025-02-03] MEDS: ROXICODONE 5 MG PO ×3 (04:00→20:14)
[2025-02-03 07:00] VITALS: BP 128/70
--- NOTE | 2025-02-03 07:52 | W.PN.UPDATE ---
Update Note
Progress Note Update
I saw and evaluated the patient. I reviewed the resident�s note and agree with findings and plan as documented in the resident�s note.
No new complaints.
Gen: NAD, AAOx3.
Eyes: EOMI, PERRLA, no scleral icterus.
Neck: supple.
CV: remains , +S1/S2, no m/r/g.
Resp: remains CTAB, no rales, wheezes, or rhonchi.
Abd: +BS, soft, NT, ND
Skin: No rashes. RUE with C/D/I dressing
Neuro: remains CN 2-12 intact, non-focal. No motor or sensory deficits in RUE
Psych: Normal mood and affect.
CXR 01/29:
1. Mild interstitial cardiogenic pulmonary edema.
2. Mild cardiomegaly.
3. Previous aortic valve replacement.
4. Mildly to moderately decreased lung volumes.
CTA RUE 01/29: Intramuscular hematoma within the proximal right forearm as described. No CTA evidence for active bleeding.
RUE compartment syndrome:
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
-Intramuscular hematoma confirmed within the volar radial soft tissues of the proximal forearm on CTA of the right forearm
-s/p fasciotomy 01/29/25
-ortho following
-pain control and neurovascular checks
h/o [facility] AVR in 2014 due to bacterial endocarditis:
-Target INR 2.5-3.5 as per cards
-cont heparin/coumadin bridge
Other problems:
Obesity due to excess calories: encourage wt loss, affects all aspects of care
Reactive leucocytosis, resolved
Normocytic anemia, with acute blood loss anemia due to intramuscular hematoma, trend Hb
Depression: cont duloxetine
FULL/Heparin
[2025-02-03] MEDS: DILAUDID 1 MG IV ×3 (08:35→15:55)
--- NOTE | 2025-02-03 09:47 | W.PN.HOSP.TC ---
Today's Communication/Plan
-
- monitor INR, f/u with ortho and cardio
Assessment / Plan
Assessment / Plan
Right upper extremity compartment syndrome secondary to trauma:
- Patient punctured right forearm on a hook while painting his friends house 3 days ago.
- History of compartment syndrome in the past in his left anterior thigh in 2018
- Intramuscular hematoma confirmed within the volar radial soft tissues of the proximal forearm on CTA of the right forearm
- Had fasciotomy performed on 01/29/2025, today is post op day 5, will follow up with ortho about plan moving forward
- Continue neurovascular checks
- For pain Dilaudid will be 1 mg Q3h PRn and we will start oxycodone 5 mg q6hprn which he does not take regularly
- Post fasciotomy, no elevated creatinine, normal urine output and CK is 809 which is normal in someone who had fasciotomy for compartment syndrome. Continue to observe.
- Orthopedics will follow up with him to assess fasciotomy wound
Reactive leucocytosis secondary to pain from fasciotomy:
- resolved
Normocytic anemia:
- Hgb is 11.8 with MCV of 91.8
- No signs of an acute bleed, most likely due to blood loss from recent fasciotomy.
History of [facility] AVR in 2014 secondary to bacterial endocarditis:
- Target INR 2.5-3.5 since absent other risk factor including A-fib or history of stroke.
- today on 02/01/25 his INR is 1.33 increased from 1.10 yesterday. . No acute overnight bleeding symptoms. On heparin to Coumadin bridge. Will wait for a INR level from 2.5-3.5 before contemplating discharge. f/u with ortho and cardio.
- Daily PT/INR.
History of depression.
- Continue home dose duloxetine
DVT ppx SCD's until transitioned to Heparin
Full code
Anticipated Discharge: 24 - 48 hours
Subjective/Interval History
-
Date of Service: February 03, 2025
patient is s/p day 5 of a right forearm fasciotomy.
On review of systems he notes pain in his right forearm ( reduced a amelia from previous after we started oxycodone and make Dilaudid qh3prn). No vomiting, chills, fever, abdominal pain, diarrhea, altered mental status, vomiting, numbness, tingling,
loss of sensation.
Objective Data
-
Labs:
Laboratory Results
02/03/25 02/03/25 02/03/25
03:13 07:49 10:45
WBC Pending
Hgb Pending
Hct Pending
Plt Count Pending
PT 16.8 H Pending
INR 1.33 Pending
APTT 135.2 H Pending
Sodium Pending
Potassium Pending
Chloride Pending
Carbon Dioxide Pending
BUN Pending
Creatinine Pending
Glucose Pending
Calcium Pending
Total Bilirubin Pending
AST Pending
ALT Pending
Alkaline Phosphatase Pending
Vital Signs:
Vital Signs
Temp Pulse Resp BP Pulse Ox
97.7 F 67 20 128/70 99
02/03/25 07:00 02/03/25 07:00 02/03/25 07:00 02/03/25 07:00 02/03/25 07:00
I&O
02/02/25 02/03/25 02/04/25
06:59 06:59 06:59
Intake Total 980 / 980 1200 / 1200 480 / 480
Balance 980 / 980 1200 / 1200 480 / 480
Review of Systems
-
History Source: Patient
All other systems: Reviewed and negative
Physical Exam
-
General: Well Developed
Respiratory: Clear to Auscultation
Cardiac: Regular Rhythm, S1/S2 and Murmur (There is a 2/6 systolic murmur at both the left and right upper sternal border)
GI: Soft, Nontender, Nondistended and Normal Bowel Sounds
Musculoskeletal: No Clubbing, No Cyanosis and Other (his right forearm is wrapped in a cast s/p fasciotomy. Sensation and distal pulses intact.)
Skin: Warm and Dry
Neuro: AO x 3
Psych: Calm
Data Reviewed
-
Labs: Labs Reviewed by me and Discussed with Physician
[2025-02-03 10:53] LABS: Hematocrit 37.6 % (39.0-52.0); Hemoglobin 11.7 g/dL (13.0-18.0); Mean Corp Hgb Conc. 31.1 g/dL (33.0-37.0); Mean Corpuscular Volume 90.0 fL (80.0-94.0); Nucleated Red Blood Cells % 0 % (-); Platelet Count 250 10^3/uL (130-400); Red Cell Dist. Width 15.0 % (11.5-14.5)
[2025-02-03 11:03] LABS: INR 1.35; PT 17.0 Sec (11.4-14.6)
[2025-02-03 11:05] LABS: APTT 106.5 Sec (23.4-35.0)
[2025-02-03 11:35] LABS: Carbon Dioxide 27 mmol/L (22-30)
[2025-02-03 11:51] LABS: ALT (SGPT) 22 U/L (0-50); AST (SGOT) 21 U/L (17-59); Albumin 3.8 g/dl (3.5-5.0); Alkaline Phosphatase 68 U/L (38-126); Blood Urea Nitrogen 18 mg/dl (9-20); Calcium 9.5 mg/dl (8.4-10.2); Chloride 106 mmol/L (98-107); Estimated Creatinine Clearance 106 ml/min; Glucose 99 mg/dl (70-99); Potassium 4.5 mmol/L (3.5-5.1); Sodium 136 mmol/L (135-145); Total Protein 6.6 g/dl (6.3-8.2); eGFR > 60.00
[2025-02-03] MEDS: HEPARIN 25000 UNITS/250 ML IV (12:16)
--- NOTE | 2025-02-03 13:25 | PTCARENOTE ---
Patients dressing coming undone. No wound care orders noted. Dr. Daniels contacted. Dr. Daniels ordered for dressing to be changed. Patient tolerated dressing change.
--- NOTE | 2025-02-03 13:31 | W.PN.CARDCBS ---
Addendum entered and electronically signed by David Lilly MD 02/03/25 14:18:
I saw and examined the patient.
The DESIGNER AND PATTERNMAKER or PA's note was reviewed and I agree with the note.
Comment: General: Well developed, well nourished in NAD.
Neck: Supple, no JVD, HJR, carotids +2 B/L, no bruits bilaterally.
Heart: Non displaced PMI, RRR, metallic S2, No S3, S4, no rubs.
Lungs: Clear to auscultation bilaterally, no wheeze, rhonchi, rubs bilaterally,
normal expiratory phase.
Extremities: No clubbing, cyanosis or edema bilaterally.
Neuro: Grossly nonfocal, awake, alert and oriented x3.
Continue IV heparin to Coumadin. INR is slowly started to rise and is 1.3.
Original Note:
Today's Communication / Plan
-
INR increased to 1.3, INR goal is 2.5-3.5
Heparin gtt can be stopped once INR is greater than 2 and patient can continue with warfarin and INR management by cardiology as an outpatient
Impression / Plan
-
PCP: Raheem Jimenez
Primary lokie driver: Dr. Lilly
Impression:
Right forearm compartment syndrome status post fasciotomy and hematoma evacuation 01/29/2025
s/p [facility]R at [facility] for severe AI 11/04/14
Chronic Coumadin managed by cardiology
h/o heroin use 05/2017
h/o SBE 2008 from tooth abscess
Hypertension
Hyperlipidemia
Chronic HF improved EF
Improved CM EF 40% by echo 2014, improved to 50% by echo 2021
Sleep apnea
h/o traumatic hematoma left thigh with compartment syndrome status post fasciotomy 12/2017
Echo 08/2017: EF 55-60%, mild LVH, AVR with mean gradient 10 mm
Echo 07/04/2021: EF 50-55%, possible basal inferior, basal septal akinesis, status post mechanical AVR with mean gradient 8 mmHg, aortic root mildly dilated 3.8 cm
Plan:
-Patient admitted with RUE compartment syndrome and had fasciotomy 01/29/25. Cardiology consulted for h/o [facility] M[facility]ha AVR and chronic warfarin OAC.
-Patient tolerated heparin gtt starting 01/31/2025 PM and was allowed to resume warfarin per Ortho starting 02/01/2025.
-Patient was given warfarin 10 mg 02/01/2025 and 02/02/2025. INR increased from 1.1 up to 1.35 on my review of labs 02/03/2025.
-Heparin gtt running as a bridge, patient has also successfully bridged with Lovenox as an outpatient in the past. Additionally, his AVR is 10 years old which would relay a slightly lower risk of thrombosis than a newer valve and there is no known
h/o thromboembolic event.
-Expect INR will take days to increase as patient stopped taking warfarin on his own at home the day he hit his arm, 01/26/25. INR was 2.11 on admission 01/29/25 and patient was NOT given any reversal medications.
-Once INR is greater than 2 would stop heparin gtt and then continue with warfarin and INR management as an outpatient
-INRs are managed by cardiology as an outpatient, patient goes to the [facility] outpatient lab, he is known for being noncompliant with obtaining INRs, outpatient INR goal is 2.5-3.5
Progress Note - Sales Team Member
Subjective
Date of Service: February 03, 2025
He denies any increase in pain with heparin to warfarin bridge
Objective
Labs:
02/03/25 10:38
02/03/25 10:38
Labs
Hgb 11.7 g/dL (13.0-18.0) L 02/03/25 10:38
Hct 37.6 % (39.0-52.0) L 02/03/25 10:38
Plt Count 250 10^3/uL (130-400) 02/03/25 10:38
PT 17.0 Sec (11.4-14.6) H 02/03/25 10:38
INR 1.35 02/03/25 10:38
APTT Cancelled 02/03/25 10:45
APTT Cancelled 02/03/25 10:45
Sodium 136 mmol/L (135-145) 02/03/25 10:38
Potassium 4.5 mmol/L (3.5-5.1) 02/03/25 10:38
BUN 18 mg/dl (9-20) 02/03/25 10:38
Creatinine 0.9 mg/dL (0.7-1.3) 02/03/25 10:38
Glucose 99 mg/dl (70-99) 02/03/25 10:38
Vital Signs and I&O:
Vital Signs
Temp Pulse Resp BP Pulse Ox
97.7 F 67 20 128/70 99
02/03/25 07:00 02/03/25 07:00 02/03/25 07:00 02/03/25 07:00 02/03/25 07:00
Vital Signs
Temp Pulse Resp BP Pulse Ox
97.7 F 67 20 128/70 99
02/03/25 07:00 02/03/25 07:00 02/03/25 07:00 02/03/25 07:00 02/03/25 07:00
Intake & Output
02/01/25 02/02/25 02/03/25 02/04/25
06:59 06:59 06:59 06:59
Intake Total 1900 / 0 980 / 980 1200 / 1200 480 / 480
Balance 1900 / 1900 980 / 980 1200 / 1200 480 / 480
Physical Exam
Physical Exam
GEN: NAD. AAOx3
LUNGS: RA. No wheeze
CV: SR on tele.
EXT: No edema B/L LE. RUE forearm wrapped
[2025-02-03 15:00] VITALS: BP 118/73
--- NOTE | 2025-02-03 16:10 | CM ---
Chart reviewed and patient continues to stabilize, patient is on Lovenox to Coumadin bridge, plan is for patient to return to homewhen stable with follow up with ortho in office, employment evaluator/case manager reviewed visiting nurses with patient and patient has
declined visiting nurses.
Plan; Home with parents when stable.
[2025-02-03 16:56] LABS: APTT 65.3 Sec (23.4-35.0)
[2025-02-03] MEDS: COUMADIN 10 MG PO (17:06)
[2025-02-03] MEDS: CYMBALTA DELAYED RELEASE 30 MG PO (17:06)
[2025-02-03 23:15] VITALS: BP 130/86
[2025-02-03 23:31] LABS: APTT 128.4 Sec (23.4-35.0)
[2025-02-04] MEDS: DILAUDID 1 MG IV ×3 (00:19→16:42)
[2025-02-04] MEDS: HEPARIN 25000 UNITS/250 ML IV ×2 (01:43→16:59)
[2025-02-04] MEDS: ROXICODONE 5 MG PO ×2 (05:26→13:05)
[2025-02-04 06:00] LABS: Hematocrit 35.1 % (39.0-52.0); Hemoglobin 10.9 g/dL (13.0-18.0); Mean Corp Hgb Conc. 31.1 g/dL (33.0-37.0); Mean Corpuscular Volume 91.4 fL (80.0-94.0); Platelet Count 267 10^3/uL (130-400); Red Cell Dist. Width 14.8 % (11.5-14.5)
[2025-02-04 06:06] LABS: INR 1.63; PT 19.5 Sec (11.4-14.6)
[2025-02-04 06:09] LABS: APTT 119.0 Sec (23.4-35.0)
[2025-02-04 07:51] VITALS: BP 118/71
--- NOTE | 2025-02-04 08:21 | W.PN.UPDATE ---
Addendum entered and electronically signed by Monty Rea MD 02/04/25 13:18:
Hematoma is related to/associated with/exacerbated by warfarin
Original Note:
Update Note
Progress Note Update
I saw and evaluated the patient. I reviewed the resident�s note and agree with findings and plan as documented in the resident�s note.
No new complaints.
Gen: NAD, AAOx3.
Eyes: EOMI, PERRLA, no scleral icterus.
Neck: supple.
CV: RRR, +S1/S2, no m/r/g.
Resp: continues to remain CTAB, no rales, wheezes, or rhonchi.
Abd: +BS, soft, NT, ND
Skin: No rashes. RUE with C/D/I dressing
Neuro: continues to remain CN 2-12 intact, non-focal. No motor or sensory deficits in RUE
Psych: Normal mood and affect.
CXR 01/29:
1. Mild interstitial cardiogenic pulmonary edema.
2. Mild cardiomegaly.
3. Previous aortic valve replacement.
4. Mildly to moderately decreased lung volumes.
CTA RUE 01/29: Intramuscular hematoma within the proximal right forearm as described. No CTA evidence for active bleeding.
RUE compartment syndrome:
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
-Intramuscular hematoma confirmed within the volar radial soft tissues of the proximal forearm on CTA of the R forearm
-s/p fasciotomy 01/29/25
-ortho following
-pain control and neurovascular checks
h/o [facility] Moust[facility]ha AVR in 2014 due to bacterial endocarditis:
-Target INR 2.5-3.5 as per cards
-cont heparin/coumadin bridge (increase coumadin to 12.5mg)
Other problems:
Obesity due to excess calories: encourage wt loss, affects all aspects of care
Reactive leucocytosis, resolved
Normocytic anemia, with acute blood loss anemia due to intramuscular hematoma, trend Hb
Depression: cont duloxetine
FULL/Heparin
--- NOTE | 2025-02-04 09:16 | W.PN.HOSP.TC ---
Today's Communication/Plan
-
- monitor INR, f/u with ortho and cardio
Assessment / Plan
Assessment / Plan
Right upper extremity compartment syndrome secondary to trauma:
- Patient punctured right forearm on a hook while painting his friends house 3 days ago.
- History of compartment syndrome in the past in his left anterior thigh in 2018
- Intramuscular hematoma confirmed within the volar radial soft tissues of the proximal forearm on CTA of the right forearm
- Had fasciotomy performed on 01/29/2025, today is post op day 5, will follow up with ortho about plan moving forward
- Continue neurovascular checks
- For pain Dilaudid will be 1 mg Q3h PRn and we will start oxycodone 5 mg q6hprn which he does not take regularly
- Post fasciotomy, no elevated creatinine, normal urine output and CK is 809 which is normal in someone who had fasciotomy for compartment syndrome. Continue to observe.
- Orthopedics will follow up with him to assess fasciotomy wound
Reactive leucocytosis secondary to pain from fasciotomy:
- resolved
Normocytic anemia:
- Hgb is 11.8 with MCV of 91.8
- No signs of an acute bleed, most likely due to blood loss from recent fasciotomy.
History of [facility] Moust[facility] AVR in 2014 secondary to bacterial endocarditis:
- Target INR 2.5-3.5 since absent other risk factor including A-fib or history of stroke.
- today on 02/01/25 his INR is 1.63 increased from 1.35 yesterday. . No acute overnight bleeding symptoms. On heparin to Coumadin bridge. Will wait for a INR level from 2.5-3.5 before contemplating discharge. f/u with ortho and cardio.
- Daily PT/INR.
History of depression.
- Continue home dose duloxetine
DVT ppx SCD's until transitioned to Heparin
Full code
Anticipated Discharge: 24 - 48 hours
Subjective/Interval History
-
Date of Service: February 04, 2025
patient is s/p day 6 of a right forearm fasciotomy.
On review of systems he notes pain in his right forearm ( reduced a amelia from previous after we started oxycodone and make Dilaudid qh3prn). No vomiting, chills, fever, abdominal pain, diarrhea, altered mental status, vomiting, numbness, tingling,
loss of sensation.
Objective Data
-
Labs:
Laboratory Results
02/03/25 02/04/25 02/04/25
23:13 05:44 12:33
WBC 7.5
Hgb 10.9 L
Hct 35.1 L
Plt Count 267
PT 19.5 H
INR 1.63
APTT 128.4 H 119.0 H Pending
Vital Signs:
Vital Signs
Temp Pulse Resp BP Pulse Ox
97.8 F 59 18 118/71 100
02/04/25 07:51 02/04/25 07:51 02/04/25 07:51 02/04/25 07:51 02/04/25 07:51
I&O
02/03/25 02/04/25 02/05/25
06:59 06:59 06:59
Intake Total 1200 / 1200 2520 / 2520
Balance 1200 / 1200 2520 / 2520
Review of Systems
-
History Source: Patient
All other systems: Reviewed and negative
Physical Exam
-
General: Well Developed
Respiratory: Clear to Auscultation
Cardiac: Regular Rhythm, S1/S2 and Murmur (There is a 2/6 systolic murmur at both the left and right upper sternal border)
GI: Soft, Nontender, Nondistended and Normal Bowel Sounds
Musculoskeletal: No Clubbing, No Cyanosis and Other (his right forearm is wrapped in a cast s/p fasciotomy. Sensation and distal pulses intact.)
Skin: Warm and Dry
Neuro: AO x 3
Psych: Calm
Data Reviewed
-
Labs: Labs Reviewed by me and Discussed with Physician
--- NOTE | 2025-02-04 10:10 | W.PN.CARDCBS ---
Addendum entered and electronically signed by Jerry Loco MD 02/04/25 12:08:
I saw and examined the patient.
The Audio Visual Facilities Engineer's note was reviewed and I agree with the note.
Comment:
GEN: No distress, awake, Ox3
HEENT: supple, anicteric, mmm
LUNGS: CTA, no wheezes/rales
CV: Reg, S1/S2, / syst LSB, +click
ABD: soft, BS+, NT/ND
EXT: R arm dressing intact
NEURO: Gross non-focal
SKIN: No rash
Plan:
INR 1.63. Not at goal. Cont IV Heparin/coumadin
s/p fasciotomy
Hg at 10.9. cont to follow
hopefully for D/C in AM
Original Note:
Today's Communication / Plan
-
INR up to 1.63 today, continue warfarin 10 mg daily
Heparin gtt can be stopped once INR is greater than 2 and patient can continue with warfarin and INR management by cardiology as an outpatient
Impression / Plan
-
PCP: Raheem Jimenez
Primary director multimedia: Dr. Lilly
Impression:
Right forearm compartment syndrome status post fasciotomy and hematoma evacuation 01/29/2025
s/p [facility]ha AVR at [facility] for severe AI 11/04/14
Chronic Coumadin managed by cardiology
h/o heroin use 05/2017
h/o SBE 2009 from tooth abscess
Hypertension
Hyperlipidemia
Chronic HF improved EF
Improved CM EF 40% by echo 2014, improved to 50% by echo 2021
Sleep apnea
h/o traumatic hematoma left thigh with compartment syndrome status post fasciotomy 12/2017
Echo 08/2017: EF 55-60%, mild LVH, AVR with mean gradient 10 mm
Echo 07/04/2021: EF 50-55%, possible basal inferior, basal septal akinesis, status post mechanical AVR with mean gradient 8 mmHg, aortic root mildly dilated 3.8 cm
Plan:
-Patient admitted with RUE compartment syndrome and had fasciotomy 01/29/25. Cardiology consulted for h/o [facility] Moustapha AVR and chronic warfarin OAC.
-Patient tolerating heparin gtt since 01/31/2025 PM and warfarin since 02/01/2025.
-Warfarin 10 mg daily since 02/01/25 and INR up to 1.63 on 02/04/25.
-Once INR is greater than 2 would stop heparin gtt and then continue with warfarin and INR management as an outpatient
-Heparin gtt running as a bridge, patient has also successfully bridged with Lovenox as an outpatient in the past. Additionally, his AVR is 10 years old which would relay a slightly lower risk of thrombosis than a newer valve and there is no known
h/o thromboembolic event.
-Expect INR will take days to increase as patient stopped taking warfarin on his own at home the day he hit his arm, 01/26/25. INR was 2.11 on admission 01/29/25 and patient was NOT given any reversal medications.
-INRs are managed by cardiology as an outpatient, patient goes to the [facility] outpatient lab, he is known for being noncompliant with obtaining INRs, outpatient INR goal is 2.5-3.5
Progress Note - Outpatient Scheduler
Subjective
Date of Service: February 04, 2025
Right forearm pain being managed with Roxicodone and Dilaudid
Objective
Labs:
02/04/25 05:44
02/03/25 10:38
Labs
Hgb 10.9 g/dL (13.0-18.0) L 02/04/25 05:44
Hct 35.1 % (39.0-52.0) L 02/04/25 05:44
Plt Count 267 10^3/uL (130-400) 02/04/25 05:44
PT 19.5 Sec (11.4-14.6) H 02/04/25 05:44
INR 1.63 02/04/25 05:44
APTT 119.0 Sec (23.4-35.0) H 02/04/25 05:44
Sodium 136 mmol/L (135-145) 02/03/25 10:38
Potassium 4.5 mmol/L (3.5-5.1) 02/03/25 10:38
BUN 18 mg/dl (9-20) 02/03/25 10:38
Creatinine 0.9 mg/dL (0.7-1.3) 02/03/25 10:38
Glucose 99 mg/dl (70-99) 02/03/25 10:38
Vital Signs and I&O:
Vital Signs
Temp Pulse Resp BP Pulse Ox
97.8 F 59 18 118/71 100
02/04/25 07:51 02/04/25 07:51 02/04/25 07:51 02/04/25 07:51 02/04/25 07:51
Vital Signs
Temp Pulse Resp BP Pulse Ox
97.8 F 59 18 118/71 100
02/04/25 07:51 02/04/25 07:51 02/04/25 07:51 02/04/25 07:51 02/04/25 07:51
Intake & Output
02/02/25 02/03/25 02/04/25 02/05/25
06:59 06:59 06:59 06:59
Intake Total 980 / 980 1200 / 1200 2520 / 2520
Balance 980 / 980 1200 / 1200 2520 / 2520
Physical Exam
Physical Exam
GEN: NAD. AAOx3
LUNGS: RA. No wheeze
CV: SR on tele.
EXT: No edema B/L LE. RUE forearm wrapped
--- NOTE | 2025-02-04 12:10 | PN.CDI ---
CDI
- -
CDI:
Physician Documentation Request
Admit Date: 01/29/25 16:14
Dear Doctor,
Patient admitted for compartment syndrome.
H&P: 'who came to the ER with right arm swelling, he banged his right arm against something 3 days ago and started to be more swollen and tender. In the ER there was a concern for compartment syndrome with previous history and being on
warfarin...Intramuscular hematoma is present within the volar radial soft tissues of the proximal forearm'
Please clarify the relationship between these conditions:
Yes, hematoma is related to/associated with/exacerbated by warfarin.
No, hematoma is not related to/associated with/exacerbated by warfarin but it is due to ___. (Please specify)
Unable to determine
Use of terms such as suspected, likely, concern for, or probable (associated with a specific diagnosis that is being evaluated, monitored, or treated as if it exists) are acceptable and can be coded in the inpatient setting, when documented at the
time of discharge.
Thank you,
Hermelinda Meng RN, BSN
CDI Specialist
Available via [place] text
Please use your independent medical judgment in providing your response.
[2025-02-04 13:21] LABS: APTT 88.4 Sec (23.4-35.0)
--- NOTE | 2025-02-04 14:42 | CM ---
Chart reviewed and patient to return to home when stable, patient to follow up with cardiology and outpatient labs, patient has declined visiting nurses.
Plan; Home when stable.
[2025-02-04 15:12] VITALS: BP 131/79
[2025-02-04] MEDS: MIRALAX 17 GRAMS PO (16:42)
[2025-02-04] MEDS: CYMBALTA DELAYED RELEASE 30 MG PO (16:59)
[2025-02-04] MEDS: COUMADIN 12.5 MG PO (17:02)
[2025-02-04 19:29] LABS: APTT 64.2 Sec (23.4-35.0)
[2025-02-04 23:19] VITALS: BP 126/81
[2025-02-05] MEDS: DILAUDID 1 MG IV (00:34)
[2025-02-05 02:24] LABS: APTT 138.9 Sec (23.4-35.0)
[2025-02-05 07:00] VITALS: BP 144/74
[2025-02-05 07:59] LABS: Hematocrit 36.4 % (39.0-52.0); Hemoglobin 11.3 g/dL (13.0-18.0); Mean Corp Hgb Conc. 31.0 g/dL (33.0-37.0); Mean Corpuscular Volume 92.2 fL (80.0-94.0); Nucleated Red Blood Cells % 0 % (-); Platelet Count 256 10^3/uL (130-400); Red Cell Dist. Width 14.7 % (11.5-14.5)
[2025-02-05 08:24] LABS: ALT (SGPT) 22 U/L (0-50); AST (SGOT) 23 U/L (17-59); Albumin 3.8 g/dl (3.5-5.0); Alkaline Phosphatase 66 U/L (38-126); Blood Urea Nitrogen 15 mg/dl (9-20); Calcium 9.4 mg/dl (8.4-10.2); Carbon Dioxide 25 mmol/L (22-30); Chloride 105 mmol/L (98-107); Estimated Creatinine Clearance 106 ml/min; Glucose 96 mg/dl (70-99); Potassium 4.3 mmol/L (3.5-5.1); Sodium 136 mmol/L (135-145); Total Protein 6.6 g/dl (6.3-8.2); eGFR > 60.00
--- NOTE | 2025-02-05 09:07 | W.PN.CARDCBS ---
Addendum entered and electronically signed by Feliberto Tran DO 02/05/25 11:34:
.
INR acceptable for d/c.
Give Coumadin 12.5 mg today, then continue coumadin 10 mg daily
INR goal going forward is 2-3.
Message sent to coumadin clinic [facility]
Outpt cardiac follow up to be arranged.
Discussed with primary service.
Original Note:
Today's Communication / Plan
-
IV heparin to coumadin bridge
d/c once INR >2
Impression / Plan
-
PCP: Raheem Jimenez
Primary server engineer: Dr. Lilly
Impression:
Right forearm compartment syndrome status post fasciotomy and hematoma evacuation 01/29/2025
s/p [facility]ha AVR at [facility] for severe AI 11/04/14
Chronic Coumadin managed by cardiology
h/o heroin use 05/2017
h/o SBE 2009 from tooth abscess
Hypertension
Hyperlipidemia
Chronic HF improved EF
Improved CM EF 40% by echo 2014, improved to 50% by echo 2021
Sleep apnea
h/o traumatic hematoma left thigh with compartment syndrome status post fasciotomy 12/2017
Echo 08/2017: EF 55-60%, mild LVH, AVR with mean gradient 10 mm
Echo 07/04/2021: EF 50-55%, possible basal inferior, basal septal akinesis, status post mechanical AVR with mean gradient 8 mmHg, aortic root mildly dilated 3.8 cm
Plan:
-Patient admitted with RUE compartment syndrome and had fasciotomy 01/29/25. Cardiology consulted for h/o [facility] Moustapha AVR and chronic warfarin OAC.
Continue IV Heparin to coumadin
INR wa 1.63 on Feb 04, pending Feb 05.
H/H remain stable.
Patient tolerating heparin gtt since 01/31/2025 PM and warfarin since 02/01/2025.
Once INR is greater than 2 would stop heparin gtt and then continue with warfarin and INR management as an outpatient
Additionally, his AVR is 10 years old which would relay a slightly lower risk of thrombosis than a newer valve and there is no known hx thromboembolic event.
Pt had stopped INR on his own the day he hit his arm. -
INRs are managed by cardiology as an outpatient, patient goes to the [facility] outpatient lab, he is known for being noncompliant with obtaining INRs, outpatient INR goal was previously 2.5-3.5
Progress Note - Lathmaker
Subjective
Date of Service: February 05, 2025
Pt seen and examined. No complaints. No chest pain or shortness of breath.
Objective
Labs:
02/05/25 07:36
02/05/25 07:36
Labs
Hgb 11.3 g/dL (13.0-18.0) L 02/05/25 07:36
Hct 36.4 % (39.0-52.0) L 02/05/25 07:36
Plt Count 256 10^3/uL (130-400) 02/05/25 07:36
PT Cancelled 02/05/25 06:00
INR Cancelled 02/05/25 06:00
APTT 138.9 Sec (23.4-35.0) H 02/05/25 02:00
Sodium 136 mmol/L (135-145) 02/05/25 07:36
Potassium 4.3 mmol/L (3.5-5.1) 02/05/25 07:36
BUN 15 mg/dl (9-20) 02/05/25 07:36
Creatinine 0.9 mg/dL (0.7-1.3) 02/05/25 07:36
Glucose 96 mg/dl (70-99) 02/05/25 07:36
Vital Signs and I&O:
Vital Signs
Temp Pulse Resp BP Pulse Ox
97.6 F 62 20 144/74 99
02/05/25 07:00 02/05/25 07:00 02/05/25 07:00 02/05/25 07:00 02/05/25 07:00
Vital Signs
Temp Pulse Resp BP Pulse Ox
97.6 F 62 20 144/74 99
02/05/25 07:00 02/05/25 07:00 02/05/25 07:00 02/05/25 07:00 02/05/25 07:00
Intake & Output
02/03/25 02/04/25 02/05/25 02/06/25
06:59 06:59 06:59 06:59
Intake Total 1200 / 1200 2520 / 2520 1440 / 1440
Balance 1200 / 1200 2520 / 2520 1440 / 1440
Physical Exam
Physical Exam
General: No acute distress, AAOX3
Neck: Negative JVD
Heart: Regular, Negative S3 positive S1/S2, Negative S4, No murmur
Lungs: CTA b/l, negative wheezes/rales/rhonchi
Abd: Positive BS, NT/ND, neg rebound/rigidity/guarding
Ext: Negative cyanosis/clubbing/edema
Neuro: nonfocal
--- NOTE | 2025-02-05 09:12 | W.PN.UPDATE ---
Addendum entered and electronically signed by Monty Rea MD 02/05/25 12:23:
Case discussed at length with Dr. Vergara. From his standpoint the patient is medically cleared for discharge. He will receive 12.5 mg of Coumadin tonight followed by 10 mg of Coumadin. He is new goal INR is 2�3 due to recent bleeding resulting in
compartment syndrome.
Total time spent on d/c = 38 min. This included today's physical exam, progress note, review of laboratory and diagnostic data, preparation of discharge documents and prescriptions, and discussions about the pt's hospital course and discharge plan
with the patient and other medical front desk specialist involved in the patient's care.
Original Note:
Update Note
Progress Note Update
I saw and evaluated the patient. I reviewed the resident�s note and agree with findings and plan as documented in the resident�s note.
No new complaints.
Gen: NAD, AAOx3.
Eyes: EOMI, PERRLA, no scleral icterus.
Neck: supple.
CV: remains RRR, +S1/S2, no m/r/g.
Resp: CTAB, no rales, wheezes, or rhonchi.
Abd: +BS, soft, NT, ND
Skin: No rashes. RUE with HERRERA wrap with sanguinous drainage proximally
Neuro: CN 2-12 intact, non-focal. No motor or sensory deficits in RUE
Psych: Normal mood and affect.
CXR 01/29:
1. Mild interstitial cardiogenic pulmonary edema.
2. Mild cardiomegaly.
3. Previous aortic valve replacement.
4. Mildly to moderately decreased lung volumes.
CTA RUE 01/29: Intramuscular hematoma within the proximal right forearm as described. No CTA evidence for active bleeding.
RUE compartment syndrome:
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
-Hematoma is related to/associated with/exacerbated by warfarin
-Intramuscular hematoma confirmed within the volar radial soft tissues of the proximal forearm on CTA of the R forearm
-s/p fasciotomy 01/29/25
-ortho following
-pain control and neurovascular checks
h/o [facility] Moustapha AVR in 2014 due to bacterial endocarditis:
-Target INR 2.5-3.5 as per cards
-cont heparin/coumadin bridge (coumadin increased to 12.5mg)
Other problems:
Obesity due to excess calories: encourage wt loss, affects all aspects of care
Reactive leucocytosis, resolved
Normocytic anemia, with acute blood loss anemia due to intramuscular hematoma, trend Hb
Depression: cont duloxetine
FULL/Heparin
--- NOTE | 2025-02-05 09:49 | W.PN.HOSP.TC ---
Today's Communication/Plan
-
- discharge patient home today if INR is more than 2
Assessment / Plan
Assessment / Plan
Right upper extremity compartment syndrome secondary to trauma:
- Patient punctured right forearm on a hook while painting his friends house 3 days ago.
- History of compartment syndrome in the past in his left anterior thigh in 2018
- Intramuscular hematoma confirmed within the volar radial soft tissues of the proximal forearm on CTA of the right forearm
- Had fasciotomy performed on 01/29/2025, today is post op day 5, will follow up with ortho about plan moving forward
- Continue neurovascular checks
- For pain Dilaudid will be 1 mg Q3h PRn and we will start oxycodone 5 mg q6hprn which he does not take regularly
- Post fasciotomy, no elevated creatinine, normal urine output and CK is 809 which is normal in someone who had fasciotomy for compartment syndrome. Continue to observe.
- Orthopedics will follow up with him to assess fasciotomy wound
Reactive leucocytosis secondary to pain from fasciotomy:
- resolved
Normocytic anemia:
- Hgb is 11.3 with MCV of 92.2
- No signs of an acute bleed, most likely due to blood loss from recent fasciotomy.
History of [facility]. Moustapha AVR in 2014 secondary to bacterial endocarditis:
- Target INR 2.5-3.5 since absent other risk factor including A-fib or history of stroke.
- today on 02/05/25 his INR is pending.. No acute overnight bleeding symptoms. On heparin to Coumadin bridge. Will wait for a INR level above 2 before discharge. f/u with ortho and cardio outpatient in 1 week.
- Daily PT/INR.
History of depression.
- Continue home dose duloxetine
DVT ppx heparin
Full code
Anticipated Discharge: Today
Subjective/Interval History
-
Date of Service: February 05, 2025
patient is s/p day 6 of a right forearm fasciotomy.
On review of systems he notes pain in his right forearm ( reduced a amelia from previous after we started oxycodone and make Dilaudid qh3prn). No vomiting, chills, fever, abdominal pain, diarrhea, altered mental status, vomiting, numbness, tingling,
loss of sensation.
Objective Data
-
Labs:
Laboratory Results
02/05/25 02/05/25 02/05/25
02:00 06:00 07:36
WBC 7.4
Hgb 11.3 L
Hct 36.4 L
Plt Count 256
PT Cancelled
INR Cancelled
APTT 138.9 H
Sodium 136
Potassium 4.3
Chloride 105
Carbon Dioxide 25
BUN 15
Creatinine 0.9
Glucose 96
Calcium 9.4
Total Bilirubin 0.6
AST 23
ALT 22
Alkaline Phosphatase 66
02/05/25
09:32
WBC
Hgb
Hct
Plt Count
PT Pending
INR Pending
APTT Pending
Sodium
Potassium
Chloride
Carbon Dioxide
BUN
Creatinine
Glucose
Calcium
Total Bilirubin
AST
ALT
Alkaline Phosphatase
Vital Signs:
Vital Signs
Temp Pulse Resp BP Pulse Ox
97.6 F 62 20 144/74 99
02/05/25 07:00 02/05/25 07:00 02/05/25 07:00 02/05/25 07:00 02/05/25 07:00
I&O
02/04/25 02/05/25 02/06/25
06:59 06:59 06:59
Intake Total 2520 / 2520 1440 / 1440
Balance 2520 / 2520 1440 / 1440
Review of Systems
-
History Source: Patient
All other systems: Reviewed and negative
Physical Exam
-
General: Well Developed
Respiratory: Clear to Auscultation
Cardiac: Regular Rhythm, S1/S2 and Murmur (There is a 2/6 systolic murmur at both the left and right upper sternal border)
GI: Soft, Nontender, Nondistended and Normal Bowel Sounds
Musculoskeletal: No Clubbing, No Cyanosis and Other (his right forearm is wrapped in a cast s/p fasciotomy. Sensation and distal pulses intact.)
Skin: Warm and Dry
Neuro: AO x 3
Psych: Calm
Data Reviewed
-
Labs: Labs Reviewed by me and Discussed with Physician
[2025-02-05 09:53] LABS: INR 1.95; PT 22.8 Sec (11.4-14.6)
[2025-02-05 09:54] LABS: APTT 69.7 Sec (23.4-35.0)
[2025-02-05] MEDS: HEPARIN 25000 UNITS/250 ML IV (10:53)
--- NOTE | 2025-02-05 12:59 | CM ---
Met with patient at bedside; reported his sister will provide transport home
Plan: discharge to home; no needs
[2025-02-05] MEDS: COUMADIN 12.5 MG PO (13:59)
[2025-02-05 14:01] VITALS: BP 153/92
--- NOTE | 2025-02-05 16:30 | W.DCSUMMARY ---
Discharge Summary
Discharge Data
Date of Admission: 01/29/25
Date of Discharge: 02/05/25
-
Pending Results: Yes
Hospital Course
Discharging Physician : Dr. Maxi Rae and Dr. Brett Herrera
Disposition : Home
Primary care physician : Unknown
Principal Discharge diagnosis : right upper extremity compartment syndrome secondary to trauma, Reactive leucocytosis
Chronic Discharge diagnosis : Normocytic anemia, History of [facility]. Moustapha AVR in 2015 secondary to bacterial endocarditis, depression
Hospital Course : 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 Moustapha AVR for severe AI (#[address] Moustapha) in 2014 on chronic Coumadin), resolved
cardiomyopathy, hypertension, asthma, sleep apnea, chronic diastolic CHF, depression, who came to the ER with right arm swelling, he banged his right arm against something 3 days ago and started to be more swollen and tender.
Problem #1: Right upper extremity compartment syndrome secondary to trauma
- Patient initially presented to the ER on 01/28/25 after he punctured right forearm on a hook while painting staircase at this [facility] house. Forearm of right X ray on 01/28/25 shows mild soft tissue swelling along the lateral aspect of the
proximal forearm. On 01/28/25 shows No sonographic evidence for RIGHT upper extremity deep venous thrombosis and a complex, heterogeneous collection within the lateral subcutaneous soft tissues of the forearm which demonstrates no internal flow and
may represent a hematoma. He also stopped taking his Coumadin for 2 days a that point as he was afraid of excessive bleeding. for He then went home with return precautions if pain gets worse with pain medication. On 01/29/25 he presented back to the
ER with increasing intensity of his previous pain. He then had an upper extremity angiography which showed increasing intramuscular hematoma within the proximal right forearm. He then had a right arm fasciotomy for compartment syndrome of the right
forearm on 01/29/25. Throughout the course of his stay he was then prescribed oxycodone 5 mg q6h and Dilaudid 1 mg q3h PRN. Orthopedics was following him throughout course of hospital stay, Dr. Daniels. Wound care also followed him and wound care
instructions updated by orthopedics in his discharge. On discharge his fasciotomy wound is well healed, no discharge, with sensation/ touch/ capillary refill intact. Follow up with orthopedics in 3-4 days.
Problem #2: St. Moustapha aortic valve replacement after infectious artery endocarditis ([facility] Moustapha AVR for severe AI (#[address] Moustapha) in 2014 on chronic Coumadin)
- Patient initially on Heparin drip for his fasciotomy surgery then bridged to Coumadin on 02/01/2025. He was initially on 10 mg of Coumadin for the bridge then increased to 12.5 mg Coumadin on 02/05/25. His INR on discharge is 1.95. No active
bleeding throughout course of hospital stay. Cardiology was consulted for managing Coumadin. F/u at [facility] to get INR checked. F/u with PCP in 1 week for CMP and CBC. On discharge he was changed back to 10 mg Coumadin to be
taken once daily which is his original home dose. F/u with Cardiology on 02/24/25.
Problem #3: Depression
- Continue home dose Duloxetine
Problem #4: Normocytic Anemia
- Hgb is 11.3 with MCV of 92.2 on discharge. No signs of an acute bleed, most likely due to blood loss from recent fasciotomy.
Important imaging findings :
Forearm Xray on 01/28/25:
Mild soft tissue swelling along the lateral aspect of the proximal forearm.
Upper extremity angiography of right upper forearm on 01/29/2025:
Intramuscular hematoma within the proximal right forearm as described. No CTA evidence for active bleeding.
Procedure findings :
Discharge Plan
-
Patient Disposition: Home (Routine Discharge)
Discharge Diagnosis/Procedures: Right upper extremity compartment syndrome status post fasciotomy, reactive leukocytosis, normocytic anemia, [facility] Moustapha's aortic valve replacement secondary to bacterial endocarditis in 2014, depression
Condition: Fair
Diet: No restrictions
Activity: As tolerated
Driving Restrictions: Not until seen by your Dr
Bathing Restrictions: None
Blood Work: CBC, CMP in less than 3 days with PCP. INR early next week with results to [facility] coumadin clinic.
Other Services: OT
Wound Care: Daily dressing changes
Ok to wash with soap and water
Dab, dry, and cover with clean dressing
Referrals:
Wayne Daniels MD [Active, Orthopedics] - in three to four days
Sophie Navarro CRNP [Specified Professional Personl, Cardiology] - 02/24/25 3:00 pm
Referral Note: You have a cardiology follow up appointment at the [place] office with Dr. Lilly's nurse practitioner, Sophie. Please call with questions.
UNKNOWN - PT DOES,NOT KNOW [Unknown Provider, Family Practice] - in less than 1 week
Additional Discharge Medication Instructions: INR goal is 2-3
Coumadin 12.5 dose in hospital today on 02/05/2025, then on discharge resume home dose of coumadin 10 mg daily starting on 02/06/25
Coumadin clinic [facility] has been notified by cardiology
Prescriptions:
New
acetaminophen 325 mg Tablet
650 mg PO Q4HPRN PRN (Reason: mild pain/GUADALUPE/temp> 100.4F) Qty: 30 0RF
warfarin 10 mg tablet
10 mg PO QPM Qty: 30 0RF
Continued
duloxetine 30 mg Capsule,Delayed Release(Dr/Ec)
30 mg PO QPM
oxycodone 5 mg tablet
5 mg PO Q6HPRN PRN (Reason: severe Pain)
Discontinued
warfarin 10 mg Tablet
10 mg PO QPM
Discharge Orders:
Discharge Patient (As Directed); Ordered 02/05/25
Ordered By: Monty Rea
Discharge Date and Time
Discharge Date/Time: 02/05/25 14:04
Print Language: BRUNEIAN
== END 2025-02-05 14:04 | disposition home or self-care (01) | DRG 908 ==
LOC: 2 NORTH 16:14
PROVIDERS: Internal Medicine; Nurse Practitioner Gerontology; Orthopaedic Surgery; Physician Assistant; Physician Assistant Medical; ADMITTING PHYSICIAN General Practice; ATTENDING PHYSICIAN Internal Medicine; CONSULT PHYSICIAN Orthopaedic Surgery; EMERGENCY PHYSICIAN Student in an Organized Health Care Education/Training Program; FAMILY PHYSICIAN Emergency Medicine; OTHER PHYSICIAN Internal Medicine Cardiovascular Disease
PROC: 0KC90ZZ Extirpation of Matter from Right Lower Arm and Wrist Muscle, Open Approach (ICD-10-PCS; 2025-01-29)
PROC: 0KN90ZZ Release Right Lower Arm and Wrist Muscle, Open Approach (ICD-10-PCS; 2025-01-29)
DX: T79.A11A Traumatic compartment syndrome of right upper extremity, initial encounter (principal); D62 Acute posthemorrhagic anemia; D68.32 Hemorrhagic disorder due to extrinsic circulating anticoagulants; I50.32 Chronic diastolic (congestive) heart failure; S50.11XA Contusion of right forearm, initial encounter; F32.A Depression, unspecified; I11.0 Hypertensive heart disease with heart failure; Z79.01 Long term (current) use of anticoagulants; Z79.899 Other long term (current) drug therapy; X58.XXXA Exposure to other specified factors, initial encounter
CPT/HCPCS: 71045; 73206; 80048; 80053; 82550; 83735; 85025; 85027; 85610; 85730; 94640; 96374; 96376; 99284; Q9967

== ENCOUNTER → 2025-02-09 15:26 | Outpatient (REF) | payer OTHER, SELFPAY ==
[2025-02-09 16:24] LABS: INR 2.89; PT 30.1 Sec (11.4-14.6)
== END ==
LOC: REG 15:26
PROVIDERS: ATTENDING PHYSICIAN Internal Medicine Cardiovascular Disease
DX: Z79.01 Long term (current) use of anticoagulants (principal)
CPT/HCPCS: 36415; 85610

== ENCOUNTER → 2025-03-09 12:23 | Outpatient (REF) | payer OTHER, SELFPAY ==
[2025-03-09 14:07] LABS: INR 4.81; PT 45.4 Sec (11.4-14.6)
== END ==
LOC: REG 12:23
PROVIDERS: ATTENDING PHYSICIAN Internal Medicine Cardiovascular Disease
DX: Z79.01 Long term (current) use of anticoagulants (principal)
CPT/HCPCS: 36415; 85610